=== PATIENT | male | born 1950 | race African-American/Black ===

== ENCOUNTER 2019-05-07 20:33 | Inpatient (IN) ==
--- NOTE | 2019-05-07 20:46 | Emergency Department Note ---
Disposition Clinical Impression: SIRS (systemic inflammatory response syndrome) Disposition: Admitted As Inpatient Condition: Fair Time of Disposition: 00:20 General Adult HPI - General Stated complaint: weakness Time Seen by Provider: 05/07/19 20:36 - Related Data Home Medications Medication Instructions Recorded Confirmed Acetaminophen 325 mg PO Q6HR PRN 05/16/15 06/29/15 Aspirin 81 mg PO DAILY 05/16/15 06/29/15 Benztropine Mesylate 1 mg PO BID 05/16/15 06/29/15 CloZAPine 250 mg PO HS 05/16/15 06/29/15 Diltiazem 120 mg PO DAILY 05/16/15 06/29/15 Docusate 100 mg PO BID 05/16/15 06/29/15 Haloperidol 10 mg PO TID 05/16/15 06/29/15 Hydrochlorothiazide 25 mg PO DAILY 05/16/15 06/29/15 Insulin Aspart 13 unit SQ TID 05/16/15 06/29/15 Insulin Glargine,Hum.rec.anlog 55 unit SQ DAILY 05/16/15 06/29/15 Lamotrigine 100 mg PO HS 05/16/15 06/29/15 Lisinopril 20 mg PO DAILY 05/16/15 06/29/15 [place] Carbonate 300 mg PO HS 05/16/15 06/29/15 Milk of Magnesia 30 ml PO BID 05/16/15 06/29/15 Ranitidine HCl 150 mg PO BID 05/16/15 06/29/15 Sennosides [Senna] 8.6 mg PO DAILY 06/29/15 06/29/15 Previous Rx's Medication Instructions Recorded Sennosides [Senna] 8.6 mg PO BID #60 tablet 05/18/15 Tamsulosin HCl [Flomax] 0.4 mg PO DAILY #30 cap.er.24h 05/18/15 Allergies Allergy/AdvReac Type Severity Reaction Status Date / Time Penicillins Allergy See Verified 05/14/15 20:14 Comments Past Medical History - Past Medical History Medical history: Reports: CHF, COPD, coronary artery disease, diabetes, GERD, liver disease, renal disease, other Surgical history: Reports: pacemaker/AICD, other Psychiatric history: Reports: schizophrenia - Social History Smoking Status: Current every day smoker Smokeless Tobacco Status: No Alcohol use: Reports: occasionally Drug use: Reports: unknown Course Vital Signs Temperature 100.8 F H 05/07/19 20:50 Pulse Rate 106 05/07/19 20:50 Respiratory Rate 16 05/07/19 20:50 Blood Pressure 160/76 05/07/19 20:50 O2 Sat by Pulse Oximetry 97 05/07/19 20:50 Temperature 100.8 F H 05/07/19 20:50 Pulse Rate 106 05/07/19 20:50 Respiratory Rate 16 05/07/19 20:50 Blood Pressure 160/76 05/07/19 20:50 O2 Sat by Pulse Oximetry 97 05/07/19 20:50 Oxygen Delivery Oxygen Delivery Room Air Medical Decision Making - Lab Data Result diagrams: 05/07/19 21:03 05/07/19 21:03 Lab Results 05/07/19 05/07/19 05/07/19 Range/Units 21:03 21:03 21:03 WBC 26.2 H (4.3-11.1) K/mcL RBC 4.33 (4.19-5.50) M/mcL Hgb 11.5 L (12.9-16.9) g/dL Hct 36.6 L (37.5-50.1) % MCV 84.5 (83.0-100.0) fL MCH 26.6 L (28.0-33.3) pg MCHC 31.4 L (31.6-35.5) g/dL RDW 17.2 H (11.5-14.5) % Plt Count 162 (140-400) K/mcL MPV 10.7 (9.4-12.4) fL Immature Gran % 1.0 (0-4) % Seg Neutrophils % 83.9 % Lymphocytes % 9.4 % Monocytes % 5.3 % Eosinophils % 0.1 % Basophils % 0.3 % Neutrophils # 22.0 H (1.6-8.9) K/mcL Lymphocytes # 2.5 (0.6-4.6) K/mcL Monocytes # 1.4 H (0.0-1.3) K/mcL Eosinophils # 0.0 (0.0-0.6) K/mcL Basophils # 0.1 (0.0-0.2) K/mcL Reactive Lymphocytes Present A (Not Present) PT 13.0 H (9.4-12.1) Seconds INR 1.1 Sodium 134 L (136-145) mEq/L Potassium 4.1 (3.5-5.1) mEq/L Chloride 104 (98-107) mEq/L Carbon Dioxide 25 (23-29) mEq/L BUN 23 (8-23) mg/dL Creatinine 2.04 H (0.70-1.30) mg/dL Est GFR ( Amer) 39 L (> 60) Est GFR (Non-Af Amer) 33 L (> 60) BUN/Creatinine Ratio 11 (6-26) Glucose 115 H (70-105) mg/dL Calculated Osmolality 283 (280-300) Lactic Acid (0.5-2.2) mmol/L Calcium 9.6 (8.6-10.3) mg/dL Magnesium 2.0 (1.6-2.6) mg/dL Total Bilirubin 0.4 (0.3-1.0) mg/dL AST 18 (13-39) Units/L ALT 14 (7-52) Units/L Alkaline Phosphatase 129 H (34-104) Units/L Ammonia (16-53) mcmol/L Troponin I 0.04 H* (< 0.04) ng/mL Serum Total Protein 7.2 (6.4-8.9) g/dL Albumin 3.3 L (3.5-5.7) g/dL Globulin 3.9 H (2.4-3.5) g/dL Albumin/Globulin Ratio 0.8 L (1.1-2.2) Urine Color (Yellow) Urine Clarity (Clear) Urine pH (5.0-8.0) pH Units Ur Specific [place] (1.010-1.025) Urine Protein (Neg-Trace) mg/dL Urine Glucose (UA) (Normal) mg/dL Urine Ketones (Negative) mg/dL Urine Blood (Negative) Urine Nitrite (Negative) Urine Bilirubin (Negative) Urine Urobilinogen (Normal) mg/dL Ur Leukocyte Esterase (Negative) Urine Microscopic RBC (0-3) per hpf Urine Microscopic WBC (0-3) per hpf Ur Squamous Epith Cells (None-Few) per lpf Urine Bacteria (None-Few) per hpf Hyaline Casts (None-Few) per lpf [place] (0.6-1.2) mEq/L 05/07/19 05/07/19 05/07/19 Range/Units 21:03 21:03 21:12 WBC (4.3-11.1) K/mcL RBC (4.19-5.50) M/mcL Hgb (12.9-16.9) g/dL Hct (37.5-50.1) % MCV (83.0-100.0) fL MCH (28.0-33.3) pg MCHC (31.6-35.5) g/dL RDW (11.5-14.5) % Plt Count (140-400) K/mcL MPV (9.4-12.4) fL Immature Gran % (0-4) % Seg Neutrophils % % Lymphocytes % % Monocytes % % Eosinophils % % Basophils % % Neutrophils # (1.6-8.9) K/mcL Lymphocytes # (0.6-4.6) K/mcL Monocytes # (0.0-1.3) K/mcL Eosinophils # (0.0-0.6) K/mcL Basophils # (0.0-0.2) K/mcL Reactive Lymphocytes (Not Present) PT (9.4-12.1) Seconds INR Sodium (136-145) mEq/L Potassium (3.5-5.1) mEq/L Chloride (98-107) mEq/L Carbon Dioxide (23-29) mEq/L BUN (8-23) mg/dL Creatinine (0.70-1.30) mg/dL Est GFR ( Amer) (> 60) Est GFR (Non-Af Amer) (> 60) BUN/Creatinine Ratio (6-26) Glucose (70-105) mg/dL Calculated Osmolality (280-300) Lactic Acid 1.0 (0.5-2.2) mmol/L Calcium (8.6-10.3) mg/dL Magnesium (1.6-2.6) mg/dL Total Bilirubin (0.3-1.0) mg/dL AST (13-39) Units/L ALT (7-52) Units/L Alkaline Phosphatase (34-104) Units/L Ammonia (16-53) mcmol/L Troponin I (< 0.04) ng/mL Serum Total Protein (6.4-8.9) g/dL Albumin (3.5-5.7) g/dL Globulin (2.4-3.5) g/dL Albumin/Globulin Ratio (1.1-2.2) Urine Color Yellow (Yellow) Urine Clarity Clear (Clear) Urine pH 6.0 (5.0-8.0) pH Units Ur Specific [place] 1.017 (1.010-1.025) Urine Protein >=300 H (Neg-Trace) mg/dL Urine Glucose (UA) Normal (Normal) mg/dL Urine Ketones Negative (Negative) mg/dL Urine Blood Moderate H (Negative) Urine Nitrite Negative (Negative) Urine Bilirubin Negative (Negative) Urine Urobilinogen Normal (Normal) mg/dL Ur Leukocyte Esterase Negative (Negative) Urine Microscopic RBC 15-30 H (0-3) per hpf Urine Microscopic WBC 3-5 H (0-3) per hpf Ur Squamous Epith Cells Many H (None-Few) per lpf Urine Bacteria None Seen (None-Few) per hpf Hyaline Casts None Seen (None-Few) per lpf [place] 0.5 L (0.6-1.2) mEq/L 05/07/19 Range/Units 21:49 WBC (4.3-11.1) K/mcL RBC (4.19-5.50) M/mcL Hgb (12.9-16.9) g/dL Hct (37.5-50.1) % MCV (83.0-100.0) fL MCH (28.0-33.3) pg MCHC (31.6-35.5) g/dL RDW (11.5-14.5) % Plt Count (140-400) K/mcL MPV (9.4-12.4) fL Immature Gran % (0-4) % Seg Neutrophils % % Lymphocytes % % Monocytes % % Eosinophils % % Basophils % % Neutrophils # (1.6-8.9) K/mcL Lymphocytes # (0.6-4.6) K/mcL Monocytes # (0.0-1.3) K/mcL Eosinophils # (0.0-0.6) K/mcL Basophils # (0.0-0.2) K/mcL Reactive Lymphocytes (Not Present) PT (9.4-12.1) Seconds INR Sodium (136-145) mEq/L Potassium (3.5-5.1) mEq/L Chloride (98-107) mEq/L Carbon Dioxide (23-29) mEq/L BUN (8-23) mg/dL Creatinine (0.70-1.30) mg/dL Est GFR ( Amer) (> 60) Est GFR (Non-Af Amer) (> 60) BUN/Creatinine Ratio (6-26) Glucose (70-105) mg/dL Calculated Osmolality (280-300) Lactic Acid (0.5-2.2) mmol/L Calcium (8.6-10.3) mg/dL Magnesium (1.6-2.6) mg/dL Total Bilirubin (0.3-1.0) mg/dL AST (13-39) Units/L ALT (7-52) Units/L Alkaline Phosphatase (34-104) Units/L Ammonia 45 (16-53) mcmol/L Troponin I (< 0.04) ng/mL Serum Total Protein (6.4-8.9) g/dL Albumin (3.5-5.7) g/dL Globulin (2.4-3.5) g/dL Albumin/Globulin Ratio (1.1-2.2) Urine Color (Yellow) Urine Clarity (Clear) Urine pH (5.0-8.0) pH Units Ur Specific [place] (1.010-1.025) Urine Protein (Neg-Trace) mg/dL Urine Glucose (UA) (Normal) mg/dL Urine Ketones (Negative) mg/dL Urine Blood (Negative) Urine Nitrite (Negative) Urine Bilirubin (Negative) Urine Urobilinogen (Normal) mg/dL Ur Leukocyte Esterase (Negative) Urine Microscopic RBC (0-3) per hpf Urine Microscopic WBC (0-3) per hpf Ur Squamous Epith Cells (None-Few) per lpf Urine Bacteria (None-Few) per hpf Hyaline Casts (None-Few) per lpf [place] (0.6-1.2) mEq/L Attestation Statement - Attestation Attestation: I reviewed the residents documentation and agree with the residents assessment and plan of care. I have personally had face to face time with the patient. (Brief History, Brief Exam, and MDM) I personally supervised and was present for the michelle/critical portions of the following procedures completed by the resid ent: (add procedures performed here). [id number] time provided Patient [place] [facility] with generalized weakness. The patient's actual complaint is bilateral lower extremity swelling. It appears he has a history of psychiatric disease. The patient appears in no acute distress upon arrival. Baseline home medication list reviewed by me. I attest to supervising the resident physician's interpretation of the ECG
--- NOTE | 2019-05-07 20:48 | Emergency Department Note ---
Disposition Clinical Impression: SIRS (systemic inflammatory response syndrome) Disposition: Admitted As Inpatient Condition: Fair Time of Disposition: 22:43 General Adult HPI - General Stated complaint: weakness Time Seen by Provider: 05/07/19 20:36 Source: patient, EMS Mode of arrival: EMS Limitations: no limitations Nursing Notes Reviewed: Yes Vital Signs Reviewed: Yes - History of Present Illness HPI Narrative: 68M with Pmhx of CHF, COPD, T2DM, HTN, HepC, that reports swollen feet and weakness since this morning. [facility], but he states that this is baseline for him. A chart review of the material sent from the [place] reveals that the reason they transferred him here is they believed he needed a higher level of care to determine the etiology of his weakness. Patient's only complaint is that his feet are swollen. He does not complain of any weakness during my exam. He can be understood, although with some difficulty. - Related Data Home Medications Medication Instructions Recorded Confirmed Acetaminophen 325 mg PO Q6HR PRN 05/16/15 06/29/15 Aspirin 81 mg PO DAILY 05/16/15 06/29/15 Benztropine Mesylate 1 mg PO BID 05/16/15 06/29/15 CloZAPine 250 mg PO HS 05/16/15 06/29/15 Diltiazem 120 mg PO DAILY 05/16/15 06/29/15 Docusate 100 mg PO BID 05/16/15 06/29/15 Haloperidol 10 mg PO TID 05/16/15 06/29/15 Hydrochlorothiazide 25 mg PO DAILY 05/16/15 06/29/15 Insulin Aspart 13 unit SQ TID 05/16/15 06/29/15 Insulin Glargine,Hum.rec.anlog 55 unit SQ DAILY 05/16/15 06/29/15 Lamotrigine 100 mg PO HS 05/16/15 06/29/15 Lisinopril 20 mg PO DAILY 05/16/15 06/29/15 [place] Carbonate 300 mg PO HS 05/16/15 06/29/15 Milk of Magnesia 30 ml PO BID 05/16/15 06/29/15 Ranitidine HCl 150 mg PO BID 05/16/15 06/29/15 Sennosides [Senna] 8.6 mg PO DAILY 06/29/15 06/29/15 Previous Rx's Medication Instructions Recorded Sennosides [Senna] 8.6 mg PO BID #60 tablet 05/18/15 Tamsulosin HCl [Flomax] 0.4 mg PO DAILY #30 cap.er.24h 05/18/15 Allergies Allergy/AdvReac Type Severity Reaction Status Date / Time Penicillins Allergy See Verified 05/14/15 20:14 Comments Review of Systems: In addition to that documented in the HPI above, the additional ROS was obtained: Constitutional: Denies fevers Reports chills Eyes: Denies vision changes ENMT: Denies sore throat CV: Denies chest pain Resp: Reports nine months of SOB GI: Denies vomiting or diarrhea : Denies painful urination MSK: Denies recent trauma Skin: Denies new rashes Neuro: Reports baseline numbness, tingling of feet and new onset weakness this morning Endocrine: Denies unexpected weight loss Heme: Denies bleeding disorders Past Medical History - Past Medical History Attestation: Yes The following information was validated with the patient. Medical history: Reports: CHF, COPD, coronary artery disease, diabetes, GERD, liver disease, renal disease, other Surgical history: Reports: pacemaker/AICD, other Psychiatric history: Reports: schizophrenia - Social History Smoking Status: Current every day smoker Smokeless Tobacco Status: No Alcohol use: Reports: occasionally Drug use: Reports: unknown Physical Exam General: A&O x 3 - person, place, month. No acute distress. Well developed, well nourished. Somewhat difficult to understand, but can be understood with difficulty. Head: atraumatic, normocephalic. ENT: No conjunctival injection, no scleral icterus. PERRLA. EOMI. Oropharynx non- erythematous. mucous membranes moist. Neuro: No focal deficits, no speech deficit, no facial droop, mentating well. BUE/BLE Str 5/5. Artem[place] UE/LE sensation intact. CN II-XII intact. Cerebellar testing with [id number] intact, pt is ataxic bilaterally with finger to nose. He has a baseline resting tremor that he reports is not new. Pulm: Lungs CTAB A/P. No wheezes, rales, ronchi. Cardio: RRR no m/r/g. Chest not tender to palpation. Abd: Soft, non-distended. Normoactive bowel sounds. Non-tender to palpation. No guarding. Non rigid. Extremities: Radial pulses 2+ artemio, dorsalis pedis/posterior tibialis 2+ artemio. Mild, non-pitting LE edema, R>L. No cyanosis, clubbing. Skin: warm, dry, intact. No rashes. Psych: Appropriate mood and affect. Answers questions appropriately. Somewhat argumentative. Course Vital Signs Temperature 100.8 F H 05/07/19 20:50 Pulse Rate 106 05/07/19 20:50 Respiratory Rate 16 05/07/19 20:50 Blood Pressure 160/76 05/07/19 20:50 O2 Sat by Pulse Oximetry 97 05/07/19 20:50 Temperature 100.8 F H 05/07/19 20:50 Pulse Rate 106 05/07/19 20:50 Respiratory Rate 16 05/07/19 20:50 Blood Pressure 160/76 05/07/19 20:50 O2 Sat by Pulse Oximetry 97 05/07/19 20:50 Oxygen Delivery Oxygen Delivery Room Air Medical Decision Making - MDM Narrative Medical decision making narrative: 68-year-old male with significant past medical history that reports for weakness that began this morning as well as some worsening shortness of breath. We will obtain infection rule out workup to include chest x-ray, CBC, BMP, lactic acid, blood cultures. Disposition pending. Pt had leukocytosis with fever and with complaints of increased SOB, suspect SIRS with a lung source. Spoke with the hospitalist, Dr. Le, who requested CT of Chest, Abd, and Pelvis. Will order. Pt received 1g of rocephin while in the department as well as 1L of NaCl. Pt was admitted to Dr. Le who agreed to accept the patient to his service. Results of the workup including any imaging and/or labwork was shared with the patient at bedside. Patient was given an opportunity to ask questions at bedside and all of their concerns were addressed. Patient verbalized understanding and agreement with plan of care. Pt remained stable while in the department. - Medical Records Medical records reviewed: Yes I reviewed the patient's medical records. - Lab Data Lab results reviewed: Yes I reviewed the patient's lab results. Result diagrams: 05/07/19 21:03 05/07/19 21:03 Lab Results 05/07/19 05/07/19 05/07/19 Range/Units 21:03 21:03 21:03 WBC 26.2 H (4.3-11.1) K/mcL RBC 4.33 (4.19-5.50) M/mcL Hgb 11.5 L (12.9-16.9) g/dL Hct 36.6 L (37.5-50.1) % MCV 84.5 (83.0-100.0) fL MCH 26.6 L (28.0-33.3) pg MCHC 31.4 L (31.6-35.5) g/dL RDW 17.2 H (11.5-14.5) % Plt Count 162 (140-400) K/mcL MPV 10.7 (9.4-12.4) fL Immature Gran % 1.0 (0-4) % Seg Neutrophils % 83.9 % Lymphocytes % 9.4 % Monocytes % 5.3 % Eosinophils % 0.1 % Basophils % 0.3 % Neutrophils # 22.0 H (1.6-8.9) K/mcL Lymphocytes # 2.5 (0.6-4.6) K/mcL Monocytes # 1.4 H (0.0-1.3) K/mcL Eosinophils # 0.0 (0.0-0.6) K/mcL Basophils # 0.1 (0.0-0.2) K/mcL Reactive Lymphocytes Present A (Not Present) PT 13.0 H (9.4-12.1) Seconds INR 1.1 Sodium 134 L (136-145) mEq/L Potassium 4.1 (3.5-5.1) mEq/L Chloride 104 (98-107) mEq/L Carbon Dioxide 25 (23-29) mEq/L BUN 23 (8-23) mg/dL Creatinine 2.04 H (0.70-1.30) mg/dL Est GFR ( Amer) 39 L (> 60) Est GFR (Non-Af Amer) 33 L (> 60) BUN/Creatinine Ratio 11 (6-26) Glucose 115 H (70-105) mg/dL Calculated Osmolality 283 (280-300) Lactic Acid (0.5-2.2) mmol/L Calcium 9.6 (8.6-10.3) mg/dL Magnesium 2.0 (1.6-2.6) mg/dL Total Bilirubin 0.4 (0.3-1.0) mg/dL AST 18 (13-39) Units/L ALT 14 (7-52) Units/L Alkaline Phosphatase 129 H (34-104) Units/L Ammonia (16-53) mcmol/L Troponin I 0.04 H* (< 0.04) ng/mL Serum Total Protein 7.2 (6.4-8.9) g/dL Albumin 3.3 L (3.5-5.7) g/dL Globulin 3.9 H (2.4-3.5) g/dL Albumin/Globulin Ratio 0.8 L (1.1-2.2) Urine Color (Yellow) Urine Clarity (Clear) Urine pH (5.0-8.0) pH Units Ur Specific [place] (1.010-1.025) Urine Protein (Neg-Trace) mg/dL Urine Glucose (UA) (Normal) mg/dL Urine Ketones (Negative) mg/dL Urine Blood (Negative) Urine Nitrite (Negative) Urine Bilirubin (Negative) Urine Urobilinogen (Normal) mg/dL Ur Leukocyte Esterase (Negative) Urine Microscopic RBC (0-3) per hpf Urine Microscopic WBC (0-3) per hpf Ur Squamous Epith Cells (None-Few) per lpf Urine Bacteria (None-Few) per hpf Hyaline Casts (None-Few) per lpf [place] (0.6-1.2) mEq/L 05/07/19 05/07/19 05/07/19 Range/Units 21:03 21:03 21:12 WBC (4.3-11.1) K/mcL RBC (4.19-5.50) M/mcL Hgb (12.9-16.9) g/dL Hct (37.5-50.1) % MCV (83.0-100.0) fL MCH (28.0-33.3) pg MCHC (31.6-35.5) g/dL RDW (11.5-14.5) % Plt Count (140-400) K/mcL MPV (9.4-12.4) fL Immature Gran % (0-4) % Seg Neutrophils % % Lymphocytes % % Monocytes % % Eosinophils % % Basophils % % Neutrophils # (1.6-8.9) K/mcL Lymphocytes # (0.6-4.6) K/mcL Monocytes # (0.0-1.3) K/mcL Eosinophils # (0.0-0.6) K/mcL Basophils # (0.0-0.2) K/mcL Reactive Lymphocytes (Not Present) PT (9.4-12.1) Seconds INR Sodium (136-145) mEq/L Potassium (3.5-5.1) mEq/L Chloride (98-107) mEq/L Carbon Dioxide (23-29) mEq/L BUN (8-23) mg/dL Creatinine (0.70-1.30) mg/dL Est GFR ( Amer) (> 60) Est GFR (Non-Af Amer) (> 60) BUN/Creatinine Ratio (6-26) Glucose (70-105) mg/dL Calculated Osmolality (280-300) Lactic Acid 1.0 (0.5-2.2) mmol/L Calcium (8.6-10.3) mg/dL Magnesium (1.6-2.6) mg/dL Total Bilirubin (0.3-1.0) mg/dL AST (13-39) Units/L ALT (7-52) Units/L Alkaline Phosphatase (34-104) Units/L Ammonia (16-53) mcmol/L Troponin I (< 0.04) ng/mL Serum Total Protein (6.4-8.9) g/dL Albumin (3.5-5.7) g/dL Globulin (2.4-3.5) g/dL Albumin/Globulin Ratio (1.1-2.2) Urine Color Yellow (Yellow) Urine Clarity Clear (Clear) Urine pH 6.0 (5.0-8.0) pH Units Ur Specific [place] 1.017 (1.010-1.025) Urine Protein >=300 H (Neg-Trace) mg/dL Urine Glucose (UA) Normal (Normal) mg/dL Urine Ketones Negative (Negative) mg/dL Urine Blood Moderate H (Negative) Urine Nitrite Negative (Negative) Urine Bilirubin Negative (Negative) Urine Urobilinogen Normal (Normal) mg/dL Ur Leukocyte Esterase Negative (Negative) Urine Microscopic RBC 15-30 H (0-3) per hpf Urine Microscopic WBC 3-5 H (0-3) per hpf Ur Squamous Epith Cells Many H (None-Few) per lpf Urine Bacteria None Seen (None-Few) per hpf Hyaline Casts None Seen (None-Few) per lpf [place] 0.5 L (0.6-1.2) mEq/L 05/07/19 Range/Units 21:49 WBC (4.3-11.1) K/mcL RBC (4.19-5.50) M/mcL Hgb (12.9-16.9) g/dL Hct (37.5-50.1) % MCV (83.0-100.0) fL MCH (28.0-33.3) pg MCHC (31.6-35.5) g/dL RDW (11.5-14.5) % Plt Count (140-400) K/mcL MPV (9.4-12.4) fL Immature Gran % (0-4) % Seg Neutrophils % % Lymphocytes % % Monocytes % % Eosinophils % % Basophils % % Neutrophils # (1.6-8.9) K/mcL Lymphocytes # (0.6-4.6) K/mcL Monocytes # (0.0-1.3) K/mcL Eosinophils # (0.0-0.6) K/mcL Basophils # (0.0-0.2) K/mcL Reactive Lymphocytes (Not Present) PT (9.4-12.1) Seconds INR Sodium (136-145) mEq/L Potassium (3.5-5.1) mEq/L Chloride (98-107) mEq/L Carbon Dioxide (23-29) mEq/L BUN (8-23) mg/dL Creatinine (0.70-1.30) mg/dL Est GFR ( Amer) (> 60) Est GFR (Non-Af Amer) (> 60) BUN/Creatinine Ratio (6-26) Glucose (70-105) mg/dL Calculated Osmolality (280-300) Lactic Acid (0.5-2.2) mmol/L Calcium (8.6-10.3) mg/dL Magnesium (1.6-2.6) mg/dL Total Bilirubin (0.3-1.0) mg/dL AST (13-39) Units/L ALT (7-52) Units/L Alkaline Phosphatase (34-104) Units/L Ammonia 45 (16-53) mcmol/L Troponin I (< 0.04) ng/mL Serum Total Protein (6.4-8.9) g/dL Albumin (3.5-5.7) g/dL Globulin (2.4-3.5) g/dL Albumin/Globulin Ratio (1.1-2.2) Urine Color (Yellow) Urine Clarity (Clear) Urine pH (5.0-8.0) pH Units Ur Specific [place] (1.010-1.025) Urine Protein (Neg-Trace) mg/dL Urine Glucose (UA) (Normal) mg/dL Urine Ketones (Negative) mg/dL Urine Blood (Negative) Urine Nitrite (Negative) Urine Bilirubin (Negative) Urine Urobilinogen (Normal) mg/dL Ur Leukocyte Esterase (Negative) Urine Microscopic RBC (0-3) per hpf Urine Microscopic WBC (0-3) per hpf Ur Squamous Epith Cells (None-Few) per lpf Urine Bacteria (None-Few) per hpf Hyaline Casts (None-Few) per lpf [place] (0.6-1.2) mEq/L - Radiology Data Radiology results reviewed: Yes I reviewed the patient's radiology results. Chest X-Ray 05/07/19 20:44 IMPRESSION: Cardiomegaly with clear lungs. D/ / Jesus Thurston MD / Jesus Thurston MD Interpreting Provider: Jesus Thurston MD - EKG Data EKG #1 EKG attestation: Yes I reviewed and interpreted this EKG. EKG results narrative: Heart rate 108, rhythm sinus tachycardia, axis left at -70. RBBB noted. No ST elevation or depression that meets Sgarbossa's criteria for STEMI. [place] 162, QRS 156 and prolonged, Qtc 510 and prolonged. Intervals abnormal as would be expected with RBBB. When compared to previous study dated 06/30/2015, pt had a RBBB on previous study as well.
[2019-05-07 21:19] LABS: Basophils % 0.3 %; Eosinophils % 0.1 %; Hemoglobin 11.5 g/dL (12.9-16.9); Red Cell Distribution Width 17.2 % (11.5-14.5)
[2019-05-07 21:20] LABS: Basophils # 0.1 K/mcL (0.0-0.2); Hematocrit 36.6 % (37.5-50.1); Lymphocytes # 2.5 K/mcL (0.6-4.6); Lymphocytes % 9.4 %; Mean Corpuscular HGB Conc 31.4 g/dL (31.6-35.5); Mean Corpuscular Hemoglobin 26.6 pg (28.0-33.3); Mean Corpuscular Volume 84.5 fL (83.0-100.0); Mean Platelet Volume 10.7 fL (9.4-12.4); Monocytes # 1.4 K/mcL (0.0-1.3); Monocytes % 5.3 %; Platelet Count 162 K/mcL (140-400); Red Blood Count 4.33 M/mcL (4.19-5.50); Segmented Neutrophils % 83.9 %; White Blood Count 26.2 K/mcL (4.3-11.1)
[2019-05-07 21:23] LABS: Bilirubin,Urine Negative (Negative); Blood,Urine Moderate (Negative); Clarity,Urine Clear (Clear); Color,Urine Yellow (Yellow); Glucose,Urine (UA) Normal (Normal); Ketones,Urine Negative (Negative); Leukocyte Esterase,Urine Negative (Negative); Nitrite,Urine Negative (Negative); Protein,Urine >=300 mg/dL (Neg-Trace); Specific Gravity,Urine 1.017 (1.010-1.025); Urobilinogen,Urine Normal (Normal)
[2019-05-07 21:25] LABS: Bacteria,Urine None Seen per hpf (None-Few); Hyaline Casts,Urine None Seen per lpf (None-Few); RBC,Urine 15-30 per hpf (0-3); Squamous Epithelial Cell,Urine Many per lpf (None-Few)
[2019-05-07 21:29] LABS: INR 1.1
[2019-05-07 21:41] LABS: Albumin 3.3 g/dL (3.5-5.7); Albumin/Globulin Ratio 0.8 (1.1-2.2); Bilirubin,Total 0.4 mg/dL (0.3-1.0); Calcium 9.6 mg/dL (8.6-10.3); Globulin 3.9 g/dL (2.4-3.5); Potassium 4.1 mEq/L (3.5-5.1); Total Protein 7.2 g/dL (6.4-8.9)
[2019-05-07 21:42] LABS: Reactive Lymphocytes Present (Not Present)
[2019-05-07 21:44] LABS: Troponin I 0.04 ng/mL (< 0.04)
[2019-05-07] MEDS ORDERED: cefTRIAXone 1,000 MG in 0.9 % Sodium Chloride Mini Bag 100 ML IVPB ONE (21:49)
[2019-05-07] MEDS ORDERED: 0.9 % Sodium Chloride 1,000 ML IVC ONE (22:39)
[2019-05-07] MEDS ORDERED: Acetaminophen 325 MG TABLET PO ONE (22:57)
--- NOTE | 2019-05-08 02:49 | Internal Med History&Physical ---
<ArchanasagrarioPierce srivastava Venkatesh - Last Filed: 05/08/19 07:37> Date of Encounter: 05/08/19 Internal Medicine - H&P: HPI History of present illness: Mr. Carroll is a 68 year old male Internal Medicine - H&P: Meds Acetaminophen 325 mg PO Q12HR PRN 05/16/15 [History] Aspirin 81 mg PO DAILY 05/16/15 [History] Benztropine Mesylate 0.5 mg PO BID 05/16/15 [History] Diltiazem 120 mg PO DAILY 05/16/15 [History] Docusate 100 mg PO BID 05/16/15 [History] Haloperidol 5 mg PO BID 05/16/15 [History] Hydrochlorothiazide 25 mg PO DAILY 05/16/15 [History] Insulin Aspart 13 unit SQ TID 05/16/15 [History] Insulin Glargine,Hum.rec.anlog 42 unit SQ DAILY 05/16/15 [History] Lamotrigine 100 mg PO HS 05/16/15 [History] Lisinopril 20 mg PO DAILY 05/16/15 [History] [place] Carbonate 300 mg PO HS 05/16/15 [History] Milk of Magnesia 30 ml PO BID 05/16/15 [History] Ranitidine HCl 150 mg PO BID 05/16/15 [History] Sennosides [Senna] 8.6 mg PO BID #60 tablet 05/18/15 [Rx] Tamsulosin HCl [Flomax] 0.4 mg PO DAILY #30 cap.er.24h 05/18/15 [Rx] Sennosides [Senna] 8.6 mg PO DAILY 06/29/15 [History] Albuterol Sulfate [Proair Respiclick] 2 puff IH Q6HR PRN 05/08/19 [History] Amlodipine Besylate 10 mg PO DAILY 05/08/19 [History] Bisacodyl [Woman's Laxative] 10 mg PO DAILY PRN 05/08/19 [History] Budesonide/Formoterol 160/4.5 2 puff BID 05/08/19 [History] Cholecalciferol (D-3) [Vitamin D] 2,000 unit PO DAILY 05/08/19 [History] CloZAPine [Fazaclo] 250 mg PO HS 05/08/19 [History] GlipiZIDE [Glucotrol] 5 mg PO BID 05/08/19 [History] Haloperidol 10 mg PO HS 05/08/19 [History] Omeprazole [PriLOSEC] 20 mg PO BID 05/08/19 [History] Allergy/AdvReac Type Severity Reaction Status Date / Time Penicillins Allergy See Verified 05/14/15 20:14 Comments chocolate Allergy Unknown See Uncoded 05/08/19 01:51 Comments All Systems PM: A 10-system review of systems was performed and is negative for pertinent findings except as documented above in the HPI. - Constitutional Vitals: Temp Pulse Resp BP Pulse Ox 100.6 F H 96 24 144/73 95 05/08/19 06:02 05/08/19 06:02 05/08/19 06:02 05/08/19 06:02 05/08/19 06:02 Internal Med - H&P Results - Labs CBC & Chem 7: 05/08/19 04:12 05/08/19 04:12 Labs: Short CBC 05/07/19 05/08/19 Range/Units 21:03 04:12 WBC 26.2 H 24.1 H (4.3-11.1) K/mcL Hgb 11.5 L 10.8 L (12.9-16.9) g/dL Hct 36.6 L 34.6 L (37.5-50.1) % Plt Count 162 172 (140-400) K/mcL Neutrophils # 22.0 H 19.3 H (1.6-8.9) K/mcL BMP 05/07/19 05/08/19 21:03 04:12 Sodium 134 L 136 Potassium 4.1 4.0 Chloride 104 107 Carbon Dioxide 25 23 BUN 23 22 Creatinine 2.04 H 1.89 H Glucose 115 H 62 L Calcium 9.6 9.1 Cardiac Enzymes 05/07/19 Range/Units 21:03 Troponin I 0.04 H* (< 0.04) ng/mL Liver Function 05/07/19 05/08/19 Range/Units 21:03 04:12 Total Bilirubin 0.4 0.4 (0.3-1.0) mg/dL AST 18 18 (13-39) Units/L ALT 14 13 (7-52) Units/L Alkaline Phosphatase 129 H 116 H (34-104) Units/L Albumin 3.3 L 2.9 L (3.5-5.7) g/dL Urine 05/07/19 Range/Units 21:12 Urine Color Yellow (Yellow) Urine Clarity Clear (Clear) Urine pH 6.0 (5.0-8.0) pH Units Ur Specific [place] 1.017 (1.010-1.025) Urine Protein >=300 H (Neg-Trace) mg/dL Urine Glucose (UA) Normal (Normal) mg/dL - Impressions ITS Impressions Chest X-Ray 05/07/19 20:44 IMPRESSION: Cardiomegaly with clear lungs. D/ / Jesus Thurston MD / Jesus Thurston MD Interpreting Provider: Jesus Thurston MD Chest CT 05/07/19 22:39 IMPRESSION: No acute abnormality identified. Marked thyromegaly again seen. Thyroid ultrasound could be obtained for further evaluation if clinically warranted. D/ / Jesus Thurston MD / Jesus Thurston MD Interpreting Provider: Jesus Thurston MD Abdomen/Pelvis CT 05/08/19 22:39 IMPRESSION: 1. Cholelithiasis without scan evidence for acute cholecystitis. 2. Small ventral hernias again seen containing small bowel without small bowel obstruction. 3. Large amount of stool again seen in the colon. D/ / Jesus Thurston MD / Jesus Thurston MD Interpreting Provider: Jesus Thurston MD - Time Spent With Patient Total time spent is greater than 50% in coordination of care (as documented) at patient's floor/unit and/or counseling patient: - Attending Attestation I performed a history and physical examination of the patient and discussed his management with the resident. I reviewed the resident's note and agree with the documented plan of care. Patient is a 68M with a past medical history of CHF, COPD, T2DM, HTN, HepC, who was transferred [facility] due to weakness and concern that patient requires a higher level of care to determine the etiology of his weakness. Patient's only complaint is that his feet are swollen. Patient was found to have a significant leukocytosis, elevated creatinine which appears to be near baseline and mildly elevated troponin of 0.04. Further workup including CT of the chest abdomen and pelvis revealed no clear source of infection. Physical examination was also unremarkable. No evidence of meningeal signs. Lungs clear to auscultation. No significant lower extremity edema noted. Patient was given a one-time dose of ceftriaxone in the ED for possible UTI though UA was unremarkable. Blood cultures were obtained. We will hold off antibiotics at this time given no clear etiology of infection despite meeting SIRS criteria. Continue fluids and follow-up cultures. While nurse was questioning the patient shortly after arrival to the floor, patient did not endorse thoughts of harming himself, specifically jumping off a bridge. A sitter was subsequently obtained and a psychiatric consult placed. Of note, patient is on multiple psychiatric medications including haloperidol and lithium. [place] level was obtained which was found to be low. [place], notably may cause leukocytosis, however this would not explain the patient's fever. Patient otherwise does not show any evidence of dystonia or EPS signs. We will continue to monitor <Kannan Rinaldi - Last Filed: 05/08/19 08:15> Date of Encounter: 05/08/19 Time of Encounter: 01:15 Internal Medicine - H&P: HPI History of present illness: Mr. Carroll is a 68-year-old male with a PMH of CHF, COPD, T2 DM, HTN, and hepatitis C who presented to [facility] as a transfer [facility] the [facility] for swollen feet and weakness. He was transferred here for further workup for his weakness. Only complaint is that his feet are swollen. Does not complain of any weakness. He has slurred speech which is baseline. On arrival, vital signs demonstrated an elevated temperature at 100.8, elevated heart rate at 106, elevated blood pressure 160/76. All other vital signs were within normal limits. Labs showed an elevated white count at 26.2 with left shift, a low sodium of 134, creatinine 2.04 (appears to be baseline per chart review), elevated troponin 0.04, and elevated alkaline phosphatase at 129. CXR showed cardiomegaly. 2 sets of blood cultures were ordered. A one-time dose of Rocephin was ordered, and he was given 1 bolus of normal saline. A CT scan of the chest, abdomen, and pelvis were ordered. EKG demonstrated sinus tachycardia at 108, LAD, RBBB; no changes compared to prior EKG. During interview, patient stated that he had some pain in his legs. He reports that this has been going on for the last 6 months. His lower extremities both appear swollen; nonpitting edema on exam. He has dark discolorations on the lower portion of his lower extremities. When the nurse was questioning the patient before his arrival to the floor, he had reportedly stated that he wanted to specific is physically by jumping off a bridge. A sitter was obtained and a psychiatric consult was placed. Patient does have a known psychiatric history, and is currently on lithium haloperidol. We will continue to monitor patient for signs of deterioration. Closely monitor patient's vital signs, and order pro-calcitonin, ESR, CRP, and TSH. No infection source is suspected at this time. Blood cultures are ordered and currently pending. He has no meningeal signs, no cough, clear lung sounds, no abdominal pain, and no dysuria. Past Med Surg Social Fam HX - Past Medical History Medical history: CHF, COPD, coronary artery disease, diabetes, GERD, liver disease, renal disease, other Additional medical history: heart murmur Psychiatric history: schizophrenia - Past Surgical History Surgical History: pacemaker/AICD, other - Social History Smoking Status: Current every day smoker Packs per day: 2 Smokeless Tobacco Status: No Alcohol use: occasionally Drug use: none All Systems PM: A 10-system review of systems was performed and is negative for pertinent findings except as documented above in the HPI. - Constitutional Vitals: Temp Pulse Resp BP Pulse Ox 100.6 F H 105 32 166/79 95 05/08/19 00:33 05/08/19 00:33 05/08/19 00:33 05/08/19 00:33 05/08/19 00:33 Exam: General: Conversant, slurred speech Head: atraumatic, normocephalic Eye: PERRL, EOMI, conjuntiva pink, sclera anicteric Neck: Supple, trachea midline Respiratory: CTAB. No accessory muscle use, wheezes, rales, or rhonchi Cardiovascular: RRR, +S1, +S2; no murmurs, rubs, gallops Abdomen: Soft, nontender Extremities: Nonpitting edema bilaterally, dark discoloration of both lower extremities; chronic skin changes Psychiatric: Normal affect, normal mood Skin: Dry, intact Internal Med - H&P Results - Labs CBC & Chem 7: 05/08/19 04:12 05/08/19 04:12 Labs: Short CBC 05/07/19 Range/Units 21:03 WBC 26.2 H (4.3-11.1) K/mcL Hgb 11.5 L (12.9-16.9) g/dL Hct 36.6 L (37.5-50.1) % Plt Count 162 (140-400) K/mcL Neutrophils # 22.0 H (1.6-8.9) K/mcL BMP 05/07/19 21:03 Sodium 134 L Potassium 4.1 Chloride 104 Carbon Dioxide 25 BUN 23 Creatinine 2.04 H Glucose 115 H Calcium 9.6 Cardiac Enzymes 05/07/19 Range/Units 21:03 Troponin I 0.04 H* (< 0.04) ng/mL Liver Function 05/07/19 Range/Units 21:03 Total Bilirubin 0.4 (0.3-1.0) mg/dL AST 18 (13-39) Units/L ALT 14 (7-52) Units/L Alkaline Phosphatase 129 H (34-104) Units/L Albumin 3.3 L (3.5-5.7) g/dL Urine 05/07/19 Range/Units 21:12 Urine Color Yellow (Yellow) Urine Clarity Clear (Clear) Urine pH 6.0 (5.0-8.0) pH Units Ur Specific [place] 1.017 (1.010-1.025) Urine Protein >=300 H (Neg-Trace) mg/dL Urine Glucose (UA) Normal (Normal) mg/dL - Impressions ITS Impressions Chest X-Ray 05/07/19 20:44 IMPRESSION: Cardiomegaly with clear lungs. D/ / Jesus Thurston MD / Jesus Thurston MD Interpreting Provider: Jesus Thurston MD Chest CT 05/07/19 22:39 IMPRESSION: No acute abnormality identified. Marked thyromegaly again seen. Thyroid ultrasound could be obtained for further evaluation if clinically warranted. D/ / Jesus Thurston MD / Jesus Thurston MD Interpreting Provider: Jesus Thurston MD Abdomen/Pelvis CT 05/08/19 22:39 IMPRESSION: 1. Cholelithiasis without scan evidence for acute cholecystitis. 2. Small ventral hernias again seen containing small bowel without small bowel obstruction. 3. Large amount of stool again seen in the colon. D/ / Jesus Thurston MD / Jesus Thurston MD Interpreting Provider: Jesus Thurston MD - Assessment and Plan (1) SIRS (systemic inflammatory response syndrome) Current Visit: Yes Status: Acute Assessment and plan: - Patient met 4/4 SIRS criteria on arrival with tachycardia, tachypnea, and leukocytosis - Etiology unknown at this time; no potential infection source identified - He denies cough, subjective fever, or sputum production - Of note, patient is on lithium, which may be contributing to his leukocytosis - He was given a one-time dose of Rocephin in the emergency department - Imaging studies: CXR - cardiomegaly CT chest - marked thyromegaly, no acute abnormalities CT abdomen/pelvis - Cholelithiasis w/o scan evidence for acute cholecystitis; Small ventral hernias, Large amount of stool seen in the colon Plan - Blood cultures x 2 ordered and currently pending - Pro-calcitonin pending - ESR, CRP, TSH - Is no infection source is suspected at this time, we will hold off on antibiotics for the time being. He is currently hemodynamically stable. Patients condition worsens, initiate antibiotic therapy (2) Elevated troponin Current Visit: Yes Status: Acute Assessment and plan: - Troponin noted to be elevated at 0.04 on arrival - Denies active chest pain - We will trend 2 (3) Diabetes Current Visit: No Status: Chronic Assessment and plan: - Sliding scale insulin, diabetic diet ordered Qualifiers: Qualified Code(s): E11.9 - Type 2 diabetes mellitus without complications (4) CHF (congestive heart failure) Current Visit: Yes Status: Acute Assessment and plan: - Patient has a documented history of congestive heart failure - BNP ordered and currently pending - No prior echocardiogram is on file - Will obtain echocardiogram Qualifiers: Qualified Code(s): I50.9 - Heart failure, unspecified (5) Suicidal ideation Current Visit: Yes Status: Acute Assessment and plan: - When patient was brought to the floor, he reportedly told the nurse that he wanted to harm himself, specifically by jumping off a bridge - Sitter was obtained, and psychiatry consult has been placed (6) HTN (hypertension) Current Visit: Yes Status: Acute Qualifiers: Qualified Code(s): I10 - Essential (primary) hypertension (7) COPD (chronic obstructive pulmonary disease) Current Visit: Yes Status: Acute Qualifiers: Qualified Code(s): J44.9 - Chronic obstructive pulmonary disease, unspecified - Time Spent With Patient Total time spent is greater than 50% in coordination of care (as documented) at patient's floor/unit and/or counseling patient:
[2019-05-08] MEDS ORDERED: Naloxone 0.4 MG/ML INJ IVP PRN (03:19)
[2019-05-08] MEDS: 0.9 % Sodium Chloride 1,000 ML IVC SCH ×2 (03:40→14:13)
[2019-05-08] MEDS ORDERED: Dextrose Gel 15 GM/37.5 ML TUBE PO PRN ×2 (03:54)
[2019-05-08] MEDS ORDERED: *HR* Dextrose 50 % in Water (Syg) 50 ML SYRINGE IVP PRN (03:54)
[2019-05-08] MEDS ORDERED: D5% in Water 1,000 ML IVC PRN (03:54)
[2019-05-08 04:33] LABS: Basophils # 0.1 K/mcL (0.0-0.2); Basophils % 0.2 %; Eosinophils # 0.1 K/mcL (0.0-0.6); Eosinophils % 0.3 %; Hematocrit 34.6 % (37.5-50.1); Hemoglobin 10.8 g/dL (12.9-16.9); Lymphocytes # 2.9 K/mcL (0.6-4.6); Lymphocytes % 11.9 %; Mean Corpuscular HGB Conc 31.2 g/dL (31.6-35.5); Mean Corpuscular Hemoglobin 26.4 pg (28.0-33.3); Mean Corpuscular Volume 84.6 fL (83.0-100.0); Mean Platelet Volume 10.8 fL (9.4-12.4); Monocytes # 1.5 K/mcL (0.0-1.3); Monocytes % 6.1 %; Neutrophils # 19.3 K/mcL (1.6-8.9); Platelet Count 172 K/mcL (140-400); Red Blood Count 4.09 M/mcL (4.19-5.50); Segmented Neutrophils % 80.5 %; White Blood Count 24.1 K/mcL (4.3-11.1)
[2019-05-08 04:47] LABS: Albumin 2.9 g/dL (3.5-5.7); Albumin/Globulin Ratio 0.8 (1.1-2.2); Bilirubin,Total 0.4 mg/dL (0.3-1.0); Calcium 9.1 mg/dL (8.6-10.3); Globulin 3.7 g/dL (2.4-3.5); Total Protein 6.6 g/dL (6.4-8.9)
[2019-05-08] MEDS ORDERED: Artificial Tears SOLN 15 ML BOTTLE BOTH EYES PRN (06:27)
[2019-05-08] MEDS: Insulin LISPRO 300 UNITS/3 ML VIAL SQ SCH ×4 (08:09→20:39)
[2019-05-08] MEDS ORDERED: Perflutren Lipid Microsphere 1.3 ML in 0.9 % Sodium Chloride 8.7 ML IVP ONE (08:41)
[2019-05-08] MEDS: Cholecalciferol (D-3) 1,000 UNIT (25MCG) TABLET PO SCH (08:45)
[2019-05-08] MEDS: Sennosides 8.6 MG TABLET PO SCH ×2 (08:45→20:37)
[2019-05-08] MEDS: Artificial Tears SOLN 15 ML BOTTLE BOTH EYES SCH ×5 (08:45→23:04)
[2019-05-08] MEDS: Famotidine 20 MG TABLET PO SCH ×2 (08:45→16:49)
[2019-05-08] MEDS: Aspirin 81 MG TAB.CHEW PO SCH (08:45)
[2019-05-08] MEDS: Chlorhexidine Rinse 15 ML MOUTHWASH MM SCH ×2 (08:46→20:39)
[2019-05-08] MEDS: Budesonide/Formoterol 160/4.5 1 PUFF INH IH SCH ×2 (10:38→22:29)
--- NOTE | 2019-05-08 14:02 | Consult Note ---
Date of Encounter: 05/08/19 Time of Encounter: 13:59 Assessment & Recommendation (1) Schizophrenia Current visit: Yes Status: Acute Assessment & Recommendation: Unfortunately this tech writer could not get a good assessment today as client repeatedly fell asleep and his speech was so thick and mumbled it was difficult to understand. Client did say no when this tech writer questioned his suicidality. However, given his level of sedation and inability to cooperate with an interview, do not think it is best to put a lot of jed in his negative response. Would continue with sitter for time being. Client is reportedly a and lives in a [place] [facility]. For this reason suspect his medications are given to him daily by staff and that he has been compliant with treatment for his mental health. Would continue with home meds as ordered for now. Of note, client seems to have a swollen tongue. There are multiple potential causes for this but antipsychotics can cause tongue/laryngeal swelling. Clozapine is unlikely to do this but Haldol can cause EPS reactions like this. This type of reaction is more often seem when a medication is first started or a dose is increased. However, would keep an EPS reaction to Haldol in the differential if no other known cause. If due to Haldol can treatment with an anticholinergic agent like 2mg of Cogentin or 50mg of Benadryl. Doses can be repeated as needed. If tongue starts to swell rapidly for any reason can give either of these medications IM. Qualifiers: Schizophrenia type: unspecified Qualified Code(s): F20.9 - Schizophrenia, unspecified History of Present Illness Requesting Physician: Bulmaro Gilbert Reason for consult: SI History of present illness: Mr. Carroll is a 68 year old male with Schizophrenia who was transferred from the [place] for generalized weakness. Psychiatry was consulted due to reports client expressed a desire to jump off a bridge. Unfortunately, client was unable to be adequately assessed today as he kept falling asleep while trying to answer questions. His speech also sounded very thick and was difficult to understand. His sitter said client's tongue has been swollen since arriving at [place]. CC: Bulmaro Gilbert Past Med Surg Social Fam HX - Past Medical History Medical history: CHF, COPD, coronary artery disease, diabetes, GERD, liver disease, renal disease, other - Past Psychiatric History Psychiatric history: Reports: schizophrenia Family psychiatric history: Unknown Family History of Suicide: Unknown - Past Surgical History Surgical History: pacemaker/AICD, other - Social History Smoking Status: Current every day smoker Smokeless Tobacco Status: No Alcohol use: occasionally Drug use: none Medications & Allergies Acetaminophen 325 mg PO Q12HR PRN 05/16/15 [History] Aspirin 81 mg PO DAILY 05/16/15 [History] Benztropine Mesylate 0.5 mg PO BID 05/16/15 [History] Diltiazem 120 mg PO DAILY 05/16/15 [History] Docusate 100 mg PO BID 05/16/15 [History] Haloperidol 5 mg PO BID 05/16/15 [History] Hydrochlorothiazide 25 mg PO DAILY 05/16/15 [History] Insulin Aspart 13 unit SQ TID 05/16/15 [History] Insulin Glargine,Hum.rec.anlog 42 unit SQ DAILY 05/16/15 [History] Lamotrigine 100 mg PO HS 05/16/15 [History] Lisinopril 20 mg PO DAILY 05/16/15 [History] [place] Carbonate 300 mg PO HS 05/16/15 [History] Milk of Magnesia 30 ml PO BID 05/16/15 [History] Ranitidine HCl 150 mg PO BID 05/16/15 [History] Sennosides [Senna] 8.6 mg PO BID #60 tablet 05/18/15 [Rx] Tamsulosin HCl [Flomax] 0.4 mg PO DAILY #30 cap.er.24h 05/18/15 [Rx] Sennosides [Senna] 8.6 mg PO DAILY 06/29/15 [History] Albuterol Sulfate [Proair Respiclick] 2 puff IH Q6HR PRN 05/08/19 [History] Amlodipine Besylate 10 mg PO DAILY 05/08/19 [History] Bisacodyl [Woman's Laxative] 10 mg PO DAILY PRN 05/08/19 [History] Budesonide/Formoterol 160/4.5 2 puff BID 05/08/19 [History] Cholecalciferol (D-3) [Vitamin D] 2,000 unit PO DAILY 05/08/19 [History] CloZAPine [Fazaclo] 250 mg PO HS 05/08/19 [History] GlipiZIDE [Glucotrol] 5 mg PO BID 05/08/19 [History] Haloperidol 10 mg PO HS 05/08/19 [History] Omeprazole [PriLOSEC] 20 mg PO BID 05/08/19 [History] Allergy/AdvReac Type Severity Reaction Status Date / Time Penicillins Allergy See Verified 05/14/15 20:14 Comments chocolate Allergy Unknown See Uncoded 05/08/19 01:51 Comments Review of Systems Constitutional: Reports: weakness Eyes: Denies: eye pain, vision change Ears, Nose, Throat: Denies: ear pain, throat pain, dental pain, hearing loss, congestion Cardiovascular: Denies: chest pain, palpitations, dyspnea on exertion Respiratory: Denies: cough, dyspnea, wheezes Gastrointestinal: Denies: abdominal pain, nausea, vomiting, diarrhea, constipation Genitourinary male: Denies: urgency, dysuria, frequency, genital lesions Musculoskeletal: Reports: other Integumentary: Denies: rash, lesions, pruritus Neurological: Denies: headache, weakness, numbness, memory loss Endocrine: Denies: fatigue, heat or cold intolerance Hematologic/Lymphatic: Denies: easy bruising, lymphadenopathy Psychiatry Exam - Constitutional Vitals: Temp Pulse Resp BP Pulse Ox 99.0 F 87 20 155/69 100 05/08/19 12:00 05/08/19 12:00 05/08/19 12:00 05/08/19 12:00 05/08/19 12:00 General appearance: unkempt, disheveled - Musculoskeletal Station: relaxed Strength & Tone: normal for patient - Psychiatric Patient Orientation: Yes Person, Yes Place Level of alertness: Sedated Behavior: uncooperative Eye Contact: No Eye Contact Speech Volume: Soft/Quiet Speech pattern: mumbled Language & Vocabulary: consistent with education Thought Process: [place] Attention Span Ability: Unable to Focus, Unable to Sustain Attention Patient Reliability: Not Reliable Historian Results - Drug Levels and Toxicology Drug Levels and Toxicology: Drug Levels and Toxicity 05/07/19 21:03 [place] 0.5 L - Labs Labs: Laboratory Last Values WBC 24.1 K/mcL (4.3-11.1) H 05/08/19 04:12 RBC 4.09 M/mcL (4.19-5.50) L 05/08/19 04:12 Hgb 10.8 g/dL (12.9-16.9) L 05/08/19 04:12 Hct 34.6 % (37.5-50.1) L 05/08/19 04:12 MCV 84.6 fL (83.0-100.0) 05/08/19 04:12 MCH 26.4 pg (28.0-33.3) L 05/08/19 04:12 MCHC 31.2 g/dL (31.6-35.5) L 05/08/19 04:12 RDW 17.0 % (11.5-14.5) H 05/08/19 04:12 Plt Count 172 K/mcL (140-400) 05/08/19 04:12 MPV 10.8 fL (9.4-12.4) 05/08/19 04:12 Immature Gran % 1.0 % (0-4) 05/08/19 04:12 Seg Neutrophils % 80.5 % 05/08/19 04:12 Lymphocytes % 11.9 % 05/08/19 04:12 Monocytes % 6.1 % 05/08/19 04:12 Eosinophils % 0.3 % 05/08/19 04:12 Basophils % 0.2 % 05/08/19 04:12 Neutrophils # 19.3 K/mcL (1.6-8.9) H 05/08/19 04:12 Lymphocytes # 2.9 K/mcL (0.6-4.6) 05/08/19 04:12 Monocytes # 1.5 K/mcL (0.0-1.3) H 05/08/19 04:12 Eosinophils # 0.1 K/mcL (0.0-0.6) 05/08/19 04:12 Basophils # 0.1 K/mcL (0.0-0.2) 05/08/19 04:12 Reactive Lymphocytes Present (Not Present) A 05/07/19 21:03 ESR >= 130 mm/hr (0-10) H 05/08/19 04:12 PT 13.0 Seconds (9.4-12.1) H 05/07/19 21:03 INR 1.1 05/07/19 21:03 Sodium 136 mEq/L (136-145) 05/08/19 04:12 Potassium 4.0 mEq/L (3.5-5.1) 05/08/19 04:12 Chloride 107 mEq/L (98-107) 05/08/19 04:12 Carbon Dioxide 23 mEq/L (23-29) 05/08/19 04:12 BUN 22 mg/dL (8-23) 05/08/19 04:12 Creatinine 1.89 mg/dL (0.70-1.30) H 05/08/19 04:12 Est GFR ( Amer) 43 (> 60) L 05/08/19 04:12 Est GFR (Non-Af Amer) 36 (> 60) L 05/08/19 04:12 BUN/Creatinine Ratio 12 (6-26) 05/08/19 04:12 Glucose 62 mg/dL (70-105) L 05/08/19 04:12 POC Glucose 194 mg/dL (70-99) H 05/07/19 20:42 Calculated Osmolality 283 (280-300) 05/08/19 04:12 Lactic Acid 1.0 mmol/L (0.5-2.2) 05/07/19 21:03 Calcium 9.1 mg/dL (8.6-10.3) 05/08/19 04:12 Magnesium 2.0 mg/dL (1.6-2.6) 05/07/19 21:03 Total Bilirubin 0.4 mg/dL (0.3-1.0) 05/08/19 04:12 AST 18 Units/L (13-39) 05/08/19 04:12 ALT 13 Units/L (7-52) 05/08/19 04:12 Alkaline Phosphatase 116 Units/L (34-104) H 05/08/19 04:12 Ammonia 45 mcmol/L (16-53) 05/07/19 21:49 Troponin I 0.04 ng/mL (< 0.04) H* 05/08/19 08:17 C-Reactive Protein 179 mg/L (Less than 10) H 05/08/19 04:12 B-Natriuretic Peptide 112 pg/mL (Less than 100) H 05/08/19 04:12 Serum Total Protein 6.6 g/dL (6.4-8.9) 05/08/19 04:12 Albumin 2.9 g/dL (3.5-5.7) L 05/08/19 04:12 Globulin 3.7 g/dL (2.4-3.5) H 05/08/19 04:12 Albumin/Globulin Ratio 0.8 (1.1-2.2) L 05/08/19 04:12 Procalcitonin 2.90 ng/mL (0.00-0.15) H 05/08/19 04:12 TSH 0.367 mcIU/mL (0.340-5.600) 05/08/19 04:12 Urine Color Yellow (Yellow) 05/07/19 21:12 Urine Clarity Clear (Clear) 05/07/19 21:12 Urine pH 6.0 pH Units (5.0-8.0) 05/07/19 21:12 Ur Specific [place] 1.017 (1.010-1.025) 05/07/19 21:12 Urine Protein >=300 mg/dL (Neg-Trace) H 05/07/19 21:12 Urine Glucose (UA) Normal mg/dL (Normal) 05/07/19 21:12 Urine Ketones Negative mg/dL (Negative) 05/07/19 21:12 Urine Blood Moderate (Negative) H 05/07/19 21:12 Urine Nitrite Negative (Negative) 05/07/19 21:12 Urine Bilirubin Negative (Negative) 05/07/19 21:12 Urine Urobilinogen Normal mg/dL (Normal) 05/07/19 21:12 Ur Leukocyte Esterase Negative (Negative) 05/07/19 21:12 Urine Microscopic RBC 15-30 per hpf (0-3) H 05/07/19 21:12 Urine Microscopic WBC 3-5 per hpf (0-3) H 05/07/19 21:12 Ur Squamous Epith Cells Many per lpf (None-Few) H 05/07/19 21:12 Urine Bacteria None Seen per hpf (None-Few) 05/07/19 21:12 Hyaline Casts None Seen per lpf (None-Few) 05/07/19 21:12 [place] 0.5 mEq/L (0.6-1.2) L 05/07/19 21:03 - Impressions Impressions Chest X-Ray 05/07/19 20:44 IMPRESSION: Cardiomegaly with clear lungs. D/ / Jesus Thurston MD / Jesus Thurston MD Interpreting Provider: Jesus Thurston MD Chest CT 05/07/19 22:39 IMPRESSION: No acute abnormality identified. Marked thyromegaly again seen. Thyroid ultrasound could be obtained for further evaluation if clinically warranted. D/ / Jesus Thurston MD / Jesus Thurston MD Interpreting Provider: Jesus Thurston MD Echocardiogram 05/08/19 08:09 Impressions: LVEF 50-55%. Normal LV chamber size and function. Mild concentric left ventricular hypertrophy. Atypical septal motion consistent with bundle branch block. Mild left ventricular diastolic dysfunction. Right ventricle was not well visualized. Grossly, it is normal in function. Unable to estimate RVSP due to lack of TR jet. Left Ventricular Wall Motion: Rest Echo Findings All wall segments showed normal motion. Findings: Study Quality * Technically sub-optimal due to poor echocardiographic windows. ECG Findings * Sinus rhythm with BBB. Left Ventricle * LVEF 50-55%. * Normal LV chamber size and function. * Mild concentric left ventricular hypertrophy. * Atypical septal motion consistent with bundle branch block. * Mild left ventricular diastolic dysfunction. Right Ventricle * Right ventricle was not well visualized. Grossly, it is normal in function. Left Atrium * Mildly dilated left atrium. Right Atrium * Normal right atrial size. Interatrial Septum * Interatrial septum not well evaluated. Aortic Valve * Aortic valve not well visualized. * No aortic regurgitation. * No aortic stenosis. Mitral Valve * Normal mitral valve structure and function. * No mitral regurgitation. * No mitral stenosis. Tricuspid Valve * Normal tricuspid valve structure and function. * No tricuspid regurgitation. * Unable to estimate RVSP due to lack of TR jet. Pulmonic Valve * Pulmonic valve not well visualized. Aorta * Normally sized aortic root. Pericardium * The pericardium appears normal. IVC * Grossly normal IVC dimensions and inspiratory collapse. Pulmonary Artery * Normal visualized portions of the main pulmonary artery. Abdomen/Pelvis CT 05/08/19 22:39 IMPRESSION: 1. Cholelithiasis without scan evidence for acute cholecystitis. 2. Small ventral hernias again seen containing small bowel without small bowel obstruction. 3. Large amount of stool again seen in the colon. D/ / Jesus Thurston MD / Jesus Thurston MD Interpreting Provider: Jesus Thurston MD Consult Discharge Plan - Plan [facility] [Primary Care Provider] -
--- NOTE | 2019-05-08 15:10 | Internal Med Progress Note ---
Hospitalist Progress Note - Encounter Date of Encounter: 05/08/19 Time of Encounter: 15:08 - Subjective Interval History: Patient very somnolent this morning. This patient has a large tongue on exam this may be why he has been having dysphagia issues in the hospital - Exam Vitals: Temp Pulse Resp BP Pulse Ox 99.0 F 87 20 155/69 100 05/08/19 12:00 05/08/19 12:00 05/08/19 12:00 05/08/19 12:00 05/08/19 12:00 Exam: General: Ill-appearing and somnolent HEENT: Tongue large but does not appear that patient has true angioedema. Lymphatics: No mandibular or cervical lymphadenopathy Cardiovascular: RRR. No murmurs. No chest wall tenderness. Lungs: Clear to auscelltation bilaterally. Regular chest rise. Abdomen: Non-tender. No rebound or gaurding. Nl bowel sounds. Extremities: No edema. 2+ pulses radial and pedal pulses Skin: No rahses, abrasions, or contusions. Nl cap refill. Psych: Somnolent and only able to arouse with sternal rub Neuro: Does not participate in exam but appears to be moving all extremities appropraitely - Assessment and Plan (1) SIRS (systemic inflammatory response syndrome) Current Visit: Yes Status: Acute Assessment and Plan: Patient with history of morbid obesity and multiple psychiatric illnesses presents with weakness and complaints of swollen feet but no other complaints in the setting meeting 3/4 SIRS criteria, somnolence on physical exam, WBC of 26.2, ESR >130, neg UA, and neg CT c/a/p for any signs of acute infection. -Case suspicious for endocarditis. Blood cultures ordered and will be followed up on -Apparently patient had nl mental status on admission. Has been somnolent on my exam May need LP but will be difficult with patient's obesity PLAN: - Re-assess patient - If still somnolent, will attempt LP and start patient on ABs for meningitis empirically - F/u blood cultures - Trend labs (2) Mild tongue swelling Current Visit: Yes Status: Acute Assessment and Plan: Tongue noted to be alrge. No evidence of angioedema. Not obtructing airway but is causing some dysphagia. On an ACEi. - HOLD ACEi - Will hold off on steroids currently because no airway compromise and will not be able to effectivly trend leukocytosis with steroids on board - Low threshold to start steroids however (3) Hypertension Current Visit: Yes Status: Acute Assessment and Plan: Hold in setting of SIRS (4) Thyromegaly Current Visit: Yes Status: Acute Assessment and Plan: Noted on CT. TSH nl. - Can undergo thyroid US as an o/p (5) CLARA (acute kidney injury) Current Visit: Yes Status: Acute Assessment and Plan: In setting of SIRS. Improving with IVF - IVF (6) CKD (chronic kidney disease) stage 2, GFR 60-89 ml/min Current Visit: Yes Status: Acute Assessment and Plan: See above (7) Suicidal ideation Current Visit: Yes Status: Acute Assessment and Plan: Apparently told ED staff that he wanted to jump off a bridge to kill himself. Was seen by psych and was too somnolent to be interviewed. - Re-exam by [facility] once mentation clears DVT Prophylaxis: heparin - Time Spent with Patient Total time spent is greater than 50% in coordination of care (as documented) at patient's floor/unit and/or counseling patient: Internal Medicine: Result - Labs CBC & Chem 7: 05/08/19 04:12 05/08/19 04:12 Labs: Short CBC 05/07/19 05/08/19 Range/Units 21:03 04:12 WBC 26.2 H 24.1 H (4.3-11.1) K/mcL Hgb 11.5 L 10.8 L (12.9-16.9) g/dL Hct 36.6 L 34.6 L (37.5-50.1) % Plt Count 162 172 (140-400) K/mcL Neutrophils # 22.0 H 19.3 H (1.6-8.9) K/mcL BMP 05/07/19 05/08/19 21:03 04:12 Sodium 134 L 136 Potassium 4.1 4.0 Chloride 104 107 Carbon Dioxide 25 23 BUN 23 22 Creatinine 2.04 H 1.89 H Glucose 115 H 62 L Calcium 9.6 9.1 Cardiac Enzymes 05/07/19 05/08/19 Range/Units 21:03 08:17 Troponin I 0.04 H* 0.04 H* (< 0.04) ng/mL Liver Function 05/07/19 05/08/19 Range/Units 21:03 04:12 Total Bilirubin 0.4 0.4 (0.3-1.0) mg/dL AST 18 18 (13-39) Units/L ALT 14 13 (7-52) Units/L Alkaline Phosphatase 129 H 116 H (34-104) Units/L Albumin 3.3 L 2.9 L (3.5-5.7) g/dL Urine 05/07/19 Range/Units 21:12 Urine Color Yellow (Yellow) Urine Clarity Clear (Clear) Urine pH 6.0 (5.0-8.0) pH Units Ur Specific [place] 1.017 (1.010-1.025) Urine Protein >=300 H (Neg-Trace) mg/dL Urine Glucose (UA) Normal (Normal) mg/dL - ABG Interpretation ABG results: PT/INR, D-dimer PT 13.0 Seconds (9.4-12.1) H 05/07/19 21:03 - Impressions Impressions Chest X-Ray 05/07/19 20:44 IMPRESSION: Cardiomegaly with clear lungs. D/ / Jesus Thurston MD / Jesus Thurston MD Interpreting Provider: Jesus Thurston MD Chest CT 05/07/19 22:39 IMPRESSION: No acute abnormality identified. Marked thyromegaly again seen. Thyroid ultrasound could be obtained for further evaluation if clinically warranted. D/ / Jesus Thurston MD / Jesus Thurston MD Interpreting Provider: Jesus Thurston MD Echocardiogram 05/08/19 08:09 Impressions: LVEF 50-55%. Normal LV chamber size and function. Mild concentric left ventricular hypertrophy. Atypical septal motion consistent with bundle branch block. Mild left ventricular diastolic dysfunction. Right ventricle was not well visualized. Grossly, it is normal in function. Unable to estimate RVSP due to lack of TR jet. Left Ventricular Wall Motion: Rest Echo Findings All wall segments showed normal motion. Findings: Study Quality * Technically sub-optimal due to poor echocardiographic windows. ECG Findings * Sinus rhythm with BBB. Left Ventricle * LVEF 50-55%. * Normal LV chamber size and function. * Mild concentric left ventricular hypertrophy. * Atypical septal motion consistent with bundle branch block. * Mild left ventricular diastolic dysfunction. Right Ventricle * Right ventricle was not well visualized. Grossly, it is normal in function. Left Atrium * Mildly dilated left atrium. Right Atrium * Normal right atrial size. Interatrial Septum * Interatrial septum not well evaluated. Aortic Valve * Aortic valve not well visualized. * No aortic regurgitation. * No aortic stenosis. Mitral Valve * Normal mitral valve structure and function. * No mitral regurgitation. * No mitral stenosis. Tricuspid Valve * Normal tricuspid valve structure and function. * No tricuspid regurgitation. * Unable to estimate RVSP due to lack of TR jet. Pulmonic Valve * Pulmonic valve not well visualized. Aorta * Normally sized aortic root. Pericardium * The pericardium appears normal. IVC * Grossly normal IVC dimensions and inspiratory collapse. Pulmonary Artery * Normal visualized portions of the main pulmonary artery. Abdomen/Pelvis CT 05/08/19 22:39 IMPRESSION: 1. Cholelithiasis without scan evidence for acute cholecystitis. 2. Small ventral hernias again seen containing small bowel without small bowel obstruction. 3. Large amount of stool again seen in the colon. D/ / Jesus Thurston MD / Jesus Thurston MD Interpreting Provider: Jesus Thurston MD Consult Discharge Plan - Plan [facility]errals: [facility] [Primary Care Provider] -
[2019-05-08] MEDS: *HR* Heparin 5,000 UNIT/ML VIAL SQ SCH (16:48)
[2019-05-08] MEDS: methylPREDNISolone 125 MG/2 ML VIAL IVP SCH (17:45)
[2019-05-08] MEDS: Lithium Carbonate 300 MG CAPSULE PO SCH (20:37)
[2019-05-08] MEDS: lamoTRIgine 100 MG TABLET PO SCH (20:46)
[2019-05-08] MEDS ORDERED: cloZAPine 100 MG TABLET PO SCH (21:00)
[2019-05-08] MEDS ORDERED: CLOZAPINE 250 MG PO SCH (21:00)
[2019-05-08] MEDS ORDERED: cloZAPine 25 MG TABLET PO SCH (21:00)
[2019-05-09] MEDS: Artificial Tears SOLN 15 ML BOTTLE BOTH EYES SCH ×5 (03:42→21:34)
[2019-05-09] MEDS: methylPREDNISolone 125 MG/2 ML VIAL IVP SCH ×2 (05:59→15:51)
[2019-05-09] MEDS: *HR* Heparin 5,000 UNIT/ML VIAL SQ SCH ×2 (06:00→15:52)
[2019-05-09] MEDS: Insulin LISPRO 300 UNITS/3 ML VIAL SQ SCH ×4 (07:52→21:36)
[2019-05-09] MEDS: Cholecalciferol (D-3) 1,000 UNIT (25MCG) TABLET PO SCH (07:52)
[2019-05-09] MEDS: Sennosides 8.6 MG TABLET PO SCH ×2 (07:52→21:35)
[2019-05-09] MEDS: Aspirin 81 MG TAB.CHEW PO SCH (07:53)
[2019-05-09] MEDS: Chlorhexidine Rinse 15 ML MOUTHWASH MM SCH ×2 (07:53→21:34)
[2019-05-09 08:06] LABS: Hematocrit 36.5 % (37.5-50.1); Hemoglobin 11.3 g/dL (12.9-16.9); Mean Corpuscular Hemoglobin 26.3 pg (28.0-33.3); Mean Corpuscular Volume 84.9 fL (83.0-100.0); Mean Platelet Volume 11.8 fL (9.4-12.4); Platelet Count 183 K/mcL (140-400); Red Cell Distribution Width 17.2 % (11.5-14.5); White Blood Count 14.4 K/mcL (4.3-11.1)
[2019-05-09] MEDS: Famotidine 20 MG TABLET PO SCH ×2 (08:12→15:51)
[2019-05-09 08:27] LABS: Calcium 9.1 mg/dL (8.6-10.3); Potassium 4.9 mEq/L (3.5-5.1)
[2019-05-09] MEDS: Budesonide/Formoterol 160/4.5 1 PUFF INH IH SCH ×2 (09:42→20:13)
--- NOTE | 2019-05-09 12:46 | Psychiatry Progress Note ---
Date of Encounter: 05/09/19 Time of Encounter: 12:39 Subjective Interval history: Client awake and alert today. Able to have a conversation but difficult to understand due to angioedema. Client has Schizophrenia [facility] Given his meds everyday by staff so he is current on them. Denies any recent changes in his medication regimen. Client endorsed suicidal thoughts at time of admission. Continues to endorse SI today but no intent or plan. Client states he has had suicidal thoughts off and on for years. No history of attempts. SI likely part of his illness. Currently takes two medications that specifically target suicidal thoughts, [place] and Clozapine. [place] level 0.5 at time of admission. Client appears chronic but stable. Elaine in his thought process but no overt psychosis. No responding to internal stimuli. SI present but likely at baseline. Review of Systems Constitutional: Reports: weakness Eyes: Denies: eye pain, eye discharge Ears, Nose, Throat: Reports: other Cardiovascular: Denies: chest pain, palpitations, dyspnea on exertion Respiratory: Reports: other Gastrointestinal: Denies: abdominal pain, nausea, vomiting, diarrhea, constipation Musculoskeletal: Denies: joint swelling, joint pain Neurological: Denies: headache, weakness, numbness, memory loss Results - Vital Signs Vital Signs: Temp Pulse Resp BP Pulse Ox 97.9 F 94 16 164/85 95 05/09/19 11:00 05/09/19 11:00 05/09/19 11:00 05/09/19 11:00 05/09/19 11:00 - Labs Labs: Laboratory Results - last 24 hr 05/08/19 05/08/19 05/08/19 08:05 08:08 08:54 WBC RBC Hgb Hct MCV MCH MCHC RDW Plt Count MPV Sodium Potassium Chloride Carbon Dioxide BUN Creatinine Est GFR ( Amer) Est GFR (Non-Af Amer) BUN/Creatinine Ratio Glucose POC Glucose 49 L* 85 102 H Calculated Osmolality Calcium 05/08/19 05/08/19 05/08/19 12:05 15:59 19:49 WBC RBC Hgb Hct MCV MCH MCHC RDW Plt Count MPV Sodium Potassium Chloride Carbon Dioxide BUN Creatinine Est GFR ( Amer) Est GFR (Non-Af Amer) BUN/Creatinine Ratio Glucose POC Glucose 95 119 H 153 H Calculated Osmolality Calcium 05/09/19 05/09/19 07:09 07:09 WBC 14.4 H RBC 4.30 Hgb 11.3 L Hct 36.5 L MCV 84.9 MCH 26.3 L MCHC 31.0 L RDW 17.2 H Plt Count 183 MPV 11.8 Sodium 140 Potassium 4.9 Chloride 104 Carbon Dioxide 22 L BUN 28 H Creatinine 1.73 H Est GFR ( Amer) 48 L Est GFR (Non-Af Amer) 39 L BUN/Creatinine Ratio 16 Glucose 329 H POC Glucose Calculated Osmolality 308 H Calcium 9.1 - Impressions ITS Impressions Chest X-Ray 05/07/19 20:44 IMPRESSION: Cardiomegaly with clear lungs. D/ / Jesus Thurston MD / Jesus Thurston MD Interpreting Provider: Jesus Thurston MD Chest CT 05/07/19 22:39 IMPRESSION: No acute abnormality identified. Marked thyromegaly again seen. Thyroid ultrasound could be obtained for further evaluation if clinically warranted. D/ / Jesus Thurston MD / Jesus Thurston MD Interpreting Provider: Jesus Thurston MD Echocardiogram 05/08/19 08:09 Impressions: LVEF 50-55%. Normal LV chamber size and function. Mild concentric left ventricular hypertrophy. Atypical septal motion consistent with bundle branch block. Mild left ventricular diastolic dysfunction. Right ventricle was not well visualized. Grossly, it is normal in function. Unable to estimate RVSP due to lack of TR jet. Left Ventricular Wall Motion: Rest Echo Findings All wall segments showed normal motion. Findings: Study Quality * Technically sub-optimal due to poor echocardiographic windows. ECG Findings * Sinus rhythm with BBB. Left Ventricle * LVEF 50-55%. * Normal LV chamber size and function. * Mild concentric left ventricular hypertrophy. * Atypical septal motion consistent with bundle branch block. * Mild left ventricular diastolic dysfunction. Right Ventricle * Right ventricle was not well visualized. Grossly, it is normal in function. Left Atrium * Mildly dilated left atrium. Right Atrium * Normal right atrial size. Interatrial Septum * Interatrial septum not well evaluated. Aortic Valve * Aortic valve not well visualized. * No aortic regurgitation. * No aortic stenosis. Mitral Valve * Normal mitral valve structure and function. * No mitral regurgitation. * No mitral stenosis. Tricuspid Valve * Normal tricuspid valve structure and function. * No tricuspid regurgitation. * Unable to estimate RVSP due to lack of TR jet. Pulmonic Valve * Pulmonic valve not well visualized. Aorta * Normally sized aortic root. Pericardium * The pericardium appears normal. IVC * Grossly normal IVC dimensions and inspiratory collapse. Pulmonary Artery * Normal visualized portions of the main pulmonary artery. Abdomen/Pelvis CT 05/08/19 22:39 IMPRESSION: 1. Cholelithiasis without scan evidence for acute cholecystitis. 2. Small ventral hernias again seen containing small bowel without small bowel obstruction. 3. Large amount of stool again seen in the colon. D/ / Jesus Thurston MD / Jesus Thurston MD Interpreting Provider: Jesus Thurston MD Assessment and Plan (1) Schizophrenia Current visit: Yes Status: Chronic Additional Plan: Client endorses SI without intent or plan. Has experienced SI off and on for years with no history of attempts. Has chronic Schizophrenia and resides in a long term. Suspect SI is part of his illness pattern and likely present at baseline. Does not present as an immediate threat to himself. Likely does not need a sitter for mental health reasons. Client already takes the two mental health medications that can be used to specifically target suicidal thoughts, [place] and Clozapine. Either medication could be increased for increased efficacy. However, would probably hold off on making any dose adjustments until medical issues have cleared up and source of angioedema has been identified. Will follow loosely and can always reevaluate when client closer to discharge. Risks, benefits, side effects, alternatives discussed w/pt: Yes Patient agreeable to treatment: Yes Qualifiers: Schizophrenia type: unspecified Qualified Code(s): F20.9 - Schizophrenia, unspecified Consult Discharge Plan - Plan [facility]Primary Care Provider[facility] - Psychiatry Exam - Constitutional Vitals: Temp Pulse Resp BP Pulse Ox 97.9 F 94 16 164/85 95 05/09/19 11:00 05/09/19 11:00 05/09/19 11:00 05/09/19 11:00 05/09/19 11:00 General appearance: disheveled - Musculoskeletal Station: relaxed Strength & Tone: normal for patient - Psychiatric Patient Orientation: Yes Person, Yes Place Level of alertness: Alert Behavior: calm, cooperative Psychomotor activity: Normal Eye Contact: Maintains Eye Contact Mood Description: Depressed Affect description: congruent with mood Speech Volume: Normal Speech pattern: slurred Language & Vocabulary: consistent with education Thought Process: Elaine Thought Content: Yes Suicidal ideation, No Homicidal ideation, No Overt delusions Perceptual Disturbances: No Reacting to internal stimuli Attention Span Ability: Capable of Focused Attention Memory Description: Grossly Intact Patient Reliability: Reliable Historian Fund of knowledge: Yes below average Intelligence Estimate: Below Average Judgment: Fair Insight: Partial
--- NOTE | 2019-05-09 14:06 | Internal Med Progress Note ---
Hospitalist Progress Note - Encounter Date of Encounter: 05/09/19 Time of Encounter: 14:01 - Subjective Interval History: Doing better this morning. Feeling like tongue is smaller. - Exam Vitals: Temp Pulse Resp BP Pulse Ox 97.9 F 94 16 164/85 95 05/09/19 11:00 05/09/19 11:00 05/09/19 11:00 05/09/19 11:00 05/09/19 11:00 Exam: General: Ill-appearing and somnolent HEENT: Tongue large but does not appear that patient has true angioedema. Lymphatics: No mandibular or cervical lymphadenopathy Cardiovascular: RRR. No murmurs. No chest wall tenderness. Lungs: Clear to auscelltation bilaterally. Regular chest rise. Abdomen: Non-tender. No rebound or gaurding. Nl bowel sounds. Extremities: No edema. 2+ pulses radial and pedal pulses Skin: No rahses, abrasions, or contusions. Nl cap refill. Psych: Somnolent and only able to arouse with sternal rub Neuro: Does not participate in exam but appears to be moving all extremities appropraitely - Assessment and Plan (1) SIRS (systemic inflammatory response syndrome) Current Visit: Yes Status: Acute Assessment and Plan: Patient with history of morbid obesity and multiple psychiatric illnesses presents with weakness and complaints of swollen feet but no other complaints in the setting meeting 3/4 SIRS criteria, somnolence on physical exam, WBC of 26.2, ESR >130, neg UA, and neg CT c/a/p for any signs of acute infection. -Case suspicious for endocarditis. Blood cultures no growth to date -Downtrending leukocytosis without intervention. No longer having fevers. -May have had aspiration event leading to acute fever and leukocytosis despite no evidence of this on chest x-ray Radiographic evidence does not always occur -Prudent to follow cultures closely. We will repeat blood cultures to adequately assess for endocarditis. PLAN: - Repeat blood cultures - F/u old blood cultures - Trend labs (2) Angioedema Current Visit: Yes Status: Acute Assessment and Plan: Tongue noted to be large. No swelling of lips. Not obstructing airway but is causing some dysphagia. On an ACEi. - HOLD ACEi - Steroids - Benadryl - H2 Sigifredo (3) Hypertension Current Visit: Yes Status: Acute Assessment and Plan: Hold in setting of SIRS (4) Thyromegaly Current Visit: Yes Status: Acute Assessment and Plan: Noted on CT. TSH nl. - Can undergo thyroid US as an o/p (5) CLARA (acute kidney injury) Current Visit: Yes Status: Acute Assessment and Plan: In setting of SIRS. Improving with IVF - IVF (6) CKD (chronic kidney disease) stage 2, GFR 60-89 ml/min Current Visit: Yes Status: Acute Assessment and Plan: See above (7) Suicidal ideation Current Visit: Yes Status: Acute Assessment and Plan: Apparently told ED staff that he wanted to jump off a bridge to kill himself. Wa s seen by psych and was too somnolent to be interviewed. - Re-exam by [facility] once mentation clears DVT Prophylaxis: heparin Internal Medicine: Result - Labs CBC & Chem 7: 05/09/19 07:09 05/09/19 07:09 Labs: Short CBC 05/09/19 Range/Units 07:09 WBC 14.4 H (4.3-11.1) K/mcL Hgb 11.3 L (12.9-16.9) g/dL Hct 36.5 L (37.5-50.1) % Plt Count 183 (140-400) K/mcL BMP 05/09/19 07:09 Sodium 140 Potassium 4.9 Chloride 104 Carbon Dioxide 22 L BUN 28 H Creatinine 1.73 H Glucose 329 H Calcium 9.1 - ABG Interpretation ABG results: PT/INR, D-dimer PT 13.0 Seconds (9.4-12.1) H 05/07/19 21:03 Consult Discharge Plan - Plan [facility]errals: [facility] [Primary Care Provider] -
[2019-05-09] MEDS: Nicotine 2 MG GUM BC SCH ×2 (17:11→21:34)
[2019-05-09] MEDS: amLODIPine 5 MG TABLET PO SCH (17:11)
[2019-05-09] MEDS: lamoTRIgine 100 MG TABLET PO SCH (21:35)
[2019-05-09] MEDS: Lithium Carbonate 300 MG CAPSULE PO SCH (21:35)
[2019-05-10] MEDS: Artificial Tears SOLN 15 ML BOTTLE BOTH EYES SCH ×3 (00:09→20:43)
[2019-05-10] MEDS: Nicotine 2 MG GUM BC SCH ×7 (00:09→20:44)
[2019-05-10] MEDS: *HR* Heparin 5,000 UNIT/ML VIAL SQ SCH ×2 (05:14→18:01)
[2019-05-10] MEDS: methylPREDNISolone 125 MG/2 ML VIAL IVP SCH (05:14)
[2019-05-10 06:15] LABS: Hematocrit 34.5 % (37.5-50.1); Hemoglobin 10.9 g/dL (12.9-16.9); Mean Corpuscular HGB Conc 31.6 g/dL (31.6-35.5); Mean Corpuscular Hemoglobin 26.3 pg (28.0-33.3); Mean Corpuscular Volume 83.1 fL (83.0-100.0); Mean Platelet Volume 11.8 fL (9.4-12.4); Platelet Count 219 K/mcL (140-400); Red Blood Count 4.15 M/mcL (4.19-5.50); Red Cell Distribution Width 16.6 % (11.5-14.5); White Blood Count 19.7 K/mcL (4.3-11.1)
[2019-05-10 06:32] LABS: Calcium 9.4 mg/dL (8.6-10.3)
[2019-05-10] MEDS: Aspirin 81 MG TAB.CHEW PO SCH (08:11)
[2019-05-10] MEDS: Sennosides 8.6 MG TABLET PO SCH ×2 (08:12→20:43)
[2019-05-10] MEDS: amLODIPine 5 MG TABLET PO SCH (08:12)
[2019-05-10] MEDS: Famotidine 20 MG TABLET PO SCH ×2 (08:12→16:45)
[2019-05-10] MEDS: Chlorhexidine Rinse 15 ML MOUTHWASH MM SCH ×2 (08:13→20:43)
[2019-05-10] MEDS: Cholecalciferol (D-3) 1,000 UNIT (25MCG) TABLET PO SCH (08:13)
[2019-05-10] MEDS: Nicotine 21 MG PATCH.TD24 TD SCH (08:14)
[2019-05-10] MEDS: Insulin LISPRO 300 UNITS/3 ML VIAL SQ SCH ×4 (08:17→20:44)
[2019-05-10] MEDS: Budesonide/Formoterol 160/4.5 1 PUFF INH IH SCH ×2 (10:52→20:25)
--- NOTE | 2019-05-10 14:56 | Internal Med Progress Note ---
Hospitalist Progress Note - Encounter Date of Encounter: 05/10/19 Time of Encounter: 14:54 - Subjective Interval History: Patient feels good today. Tongue much less swollen. - Exam Vitals: Temp Pulse Resp BP Pulse Ox 97.9 F 81 16 156/83 98 05/10/19 11:25 05/10/19 11:25 05/10/19 11:25 05/10/19 11:25 05/10/19 11:25 Exam: General: Ill-appearing and somnolent HEENT: Tongue less swollen than yesterday Lymphatics: No mandibular or cervical lymphadenopathy Cardiovascular: RRR. No murmurs. No chest wall tenderness. Lungs: Clear to auscelltation bilaterally. Regular chest rise. Abdomen: Non-tender. No rebound or gaurding. Nl bowel sounds. Extremities: No edema. 2+ pulses radial and pedal pulses Skin: No rahses, abrasions, or contusions. Nl cap refill. Psych: Somnolent and only able to arouse with sternal rub Neuro: Does not participate in exam but appears to be moving all extremities appropraitely - Assessment and Plan (1) Angioedema Current Visit: Yes Status: Acute Assessment and Plan: Tongue noted to be large. No swelling of lips. Not obstructing airway but is causing some dysphagia. On an ACEi. Much improved. Will d/c steriods given need to trend WBC and continue other therapies. - HOLD ACEi - D/c Steroids - Benadryl - H2 Sigifredo - PHOTOVOLTAIC TESTING TECHNICIAN eval with barium swallow (2) SIRS (systemic inflammatory response syndrome) Current Visit: Yes Status: Acute Assessment and Plan: Patient with history of morbid obesity and multiple psychiatric illnesses presents with weakness and complaints of swollen feet but no other complaints in the setting meeting 3/4 SIRS criteria, somnolence on physical exam, WBC of 26.2, ESR >130, neg UA, and neg CT c/a/p for any signs of acute infection. -Case suspicious for endocarditis. Blood cultures no growth to date -Leukocytosis increased but in the setting of steroid use. Will d/steroids given improvement in angioedema and trend -Patient has been afebrile PLAN: - Trend leukocytosis - Monitor for fever - F/u blood cultures (3) Hypertension Current Visit: Yes Status: Acute Assessment and Plan: Restart home meds (4) Thyromegaly Current Visit: Yes Status: Acute Assessment and Plan: Noted on CT. TSH nl. - Can undergo thyroid US as an o/p (5) CALRA (acute kidney injury) Current Visit: Yes Status: Acute Assessment and Plan: In setting of SIRS. Improving with IVF - IVF (6) CKD (chronic kidney disease) stage 2, GFR 60-89 ml/min Current Visit: Yes Status: Acute Assessment and Plan: See above (7) Suicidal ideation Current Visit: Yes Status: Acute Assessment and Plan: Apparently told ED staff that he wanted to jump off a bridge to kill himself. Was seen by psych and was too somnolent to be interviewed. - Re-exam by [facility] once mentation clears DVT Prophylaxis: heparin Internal Medicine: Result - Labs CBC & Chem 7: 05/10/19 05:57 05/10/19 05:57 Labs: Short CBC 05/10/19 Range/Units 05:57 WBC 19.7 H (4.3-11.1) K/mcL Hgb 10.9 L (12.9-16.9) g/dL Hct 34.5 L (37.5-50.1) % Plt Count 219 (140-400) K/mcL BMP 05/10/19 05:57 Sodium 135 L Potassium 5.0 Chloride 102 Carbon Dioxide 22 L BUN 46 H Creatinine 1.99 H Glucose 447 H Calcium 9.4 - ABG Interpretation ABG results: PT/INR, D-dimer PT 13.0 Seconds (9.4-12.1) H 05/07/19 21:03 Consult Discharge Plan - Plan [facility]: [facility] [Primary Care Provider] -
[2019-05-10] MEDS ORDERED: E-Z-HD (BARIUM SULF) SUSPENSION PO ONE (15:35)
[2019-05-10] MEDS ORDERED: E-Z-PAQUE (BARIUM SULF) SUSP 1 BOTTLE PO ONE (15:35)
[2019-05-10] MEDS: lamoTRIgine 100 MG TABLET PO SCH (20:43)
[2019-05-10] MEDS: Lithium Carbonate 300 MG CAPSULE PO SCH (20:43)
[2019-05-11] MEDS: Artificial Tears SOLN 15 ML BOTTLE BOTH EYES SCH ×8 (00:41→22:04)
[2019-05-11 04:19] LABS: Hematocrit 37.7 % (37.5-50.1); Mean Corpuscular HGB Conc 31.8 g/dL (31.6-35.5); Mean Corpuscular Hemoglobin 26.4 pg (28.0-33.3); Mean Corpuscular Volume 82.9 fL (83.0-100.0); Platelet Count 226 K/mcL (140-400); Red Blood Count 4.55 M/mcL (4.19-5.50); Red Cell Distribution Width 16.4 % (11.5-14.5); White Blood Count 18.9 K/mcL (4.3-11.1)
[2019-05-11 04:38] LABS: Calcium 9.9 mg/dL (8.6-10.3); Potassium 5.1 mEq/L (3.5-5.1)
[2019-05-11] MEDS: Nicotine 2 MG GUM BC SCH ×5 (06:14→12:41)
[2019-05-11] MEDS: *HR* Heparin 5,000 UNIT/ML VIAL SQ SCH ×2 (06:15→17:30)
[2019-05-11] MEDS: Budesonide/Formoterol 160/4.5 1 PUFF INH IH SCH ×2 (07:56→20:15)
[2019-05-11] MEDS: Chlorhexidine Rinse 15 ML MOUTHWASH MM SCH (09:27)
[2019-05-11] MEDS: Cholecalciferol (D-3) 1,000 UNIT (25MCG) TABLET PO SCH (09:28)
[2019-05-11] MEDS: Famotidine 20 MG TABLET PO SCH ×2 (09:28→17:30)
[2019-05-11] MEDS: Sennosides 8.6 MG TABLET PO SCH ×2 (09:28→22:02)
[2019-05-11] MEDS: amLODIPine 5 MG TABLET PO SCH (09:28)
[2019-05-11] MEDS: Aspirin 81 MG TAB.CHEW PO SCH (09:28)
[2019-05-11] MEDS: Nicotine 21 MG PATCH.TD24 TD SCH (09:28)
[2019-05-11] MEDS: Insulin LISPRO 300 UNITS/3 ML VIAL SQ SCH ×4 (09:29→22:04)
--- NOTE | 2019-05-11 12:00 | Internal Med Progress Note ---
Hospitalist Progress Note - Encounter Date of Encounter: 05/11/19 Time of Encounter: 11:58 - Subjective Interval History: Vision with no complaints this morning. Tongue feels back to normal. No issues with pain. Denies pain whatsoever. No breathing issues. Denies cough. - Exam Vitals: Temp Pulse Resp BP Pulse Ox 98.3 F 75 16 157/83 96 05/11/19 07:21 05/11/19 07:21 05/11/19 07:45 05/11/19 07:21 05/11/19 07:45 Exam: General: Ill-appearing and somnolent HEENT: Tongue back to normal. Lymphatics: No mandibular or cervical lymphadenopathy Cardiovascular: RRR. No murmurs. No chest wall tenderness. Lungs: Clear to auscelltation bilaterally. Regular chest rise. Abdomen: Non-tender. No rebound or gaurding. Nl bowel sounds. Extremities: No edema. 2+ pulses radial and pedal pulses Skin: No rahses, abrasions, or contusions. Nl cap refill. Psych: Somnolent and only able to arouse with sternal rub Neuro: Does not participate in exam but appears to be moving all extremities appropraitely - Assessment and Plan (1) Angioedema Current Visit: Yes Status: Acute Assessment and Plan: Tongue noted to be large. No swelling of lips. Not obstructing airway but is causing some dysphagia. On an ACEi. Status post 48 hours of IV steroids and Benadryl. Now completely resolved. - HOLD ACEi indefinitely (2) SIRS (systemic inflammatory response syndrome) Current Visit: Yes Status: Acute Assessment and Plan: Patient with history of morbid obesity and multiple psychiatric illnesses pr esents with weakness and complaints of swollen feet but no other complaints in the setting meeting 3/4 SIRS criteria, somnolence on physical exam, WBC of 26.2, ESR >130, neg UA, and neg CT c/a/p for any signs of acute infection. -Source still unclear. -Blood cultures no growth to date -Leukocytosis slightly decreased. Patient has been afebrile -May have been a stress response from angioedema -Fabrica can cause leukocytes but wouldnt expect fever or ESR/CRP elevations -Will add-on a peripheral smear path review today and repeat ESR/CRP If leukocytosis still persistent tomorrow recommend onc consult PLAN: - Peripheral smear path review - ESR/CRP repeat - Trend leukocytosis - Monitor for fever - F/u blood cultures (3) Hypertension Current Visit: Yes Status: Acute Assessment and Plan: Restart home meds (4) Thyromegaly Current Visit: Yes Status: Acute Assessment and Plan: Noted on CT. TSH nl. - Can undergo thyroid US as an o/p (5) CKD (chronic kidney disease) stage 2, GFR 60-89 ml/min Current Visit: Yes Status: Acute Assessment and Plan: At his baseline (6) Suicidal ideation Current Visit: Yes Status: Acute Assessment and Plan: Apparently told ED staff that he wanted to jump off a bridge to kill himself. Was seen by psych and think he is at his baseline. - Continue home psych meds DVT Prophylaxis: heparin - Time Spent with Patient Total time spent is greater than 50% in coordination of care (as documented) at patient's floor/unit and/or counseling patient: Internal Medicine: Result - Labs CBC & Chem 7: 05/11/19 03:46 05/11/19 03:46 Labs: Short CBC 05/11/19 Range/Units 03:46 WBC 18.9 H (4.3-11.1) K/mcL Hgb 12.0 L (12.9-16.9) g/dL Hct 37.7 (37.5-50.1) % Plt Count 226 (140-400) K/mcL BMP 05/11/19 03:46 Sodium 134 L Potassium 5.1 Chloride 103 Carbon Dioxide 23 BUN 50 H Creatinine 2.06 H Glucose 329 H Calcium 9.9 - ABG Interpretation ABG results: PT/INR, D-dimer PT 13.0 Seconds (9.4-12.1) H 05/07/19 21:03 - Impressions Impressions Videofluoroscopic Swallow 05/10/19 09:13 IMPRESSION: 1. Single episode of transient laryngeal penetration, without evidence of aspiration with thin barium. 2. No additional episodes of laryngeal penetrations were seen with multiple swallows with thin barium. 3. No evidence of penetration or aspiration with applesauce consistency barium or barium coated cracker. 4. Please see separate speech pathology report for full discussion of findings and recommendations. D/ / Edd Hoffman MD / Edd Hoffman MD Interpreting Provider: Edd Hoffman MD Consult Discharge Plan - Plan [facility]errals: [facility] [Primary Care Provider] -
[2019-05-11 13:38] LABS: Basophils % 0.2 %; Immature Granulocytes % 2.3 % (0-4); Immature Platelets 5.8 % (1.1-6.1); Lymphocytes # 1.7 K/mcL (0.6-4.6); Lymphocytes % 8.8 %; Monocytes # 0.8 K/mcL (0.0-1.3); Monocytes % 4.1 %; Neutrophils # 16.7 K/mcL (1.6-8.9); Segmented Neutrophils % 84.6 %
[2019-05-11 13:39] LABS: Nucleated Red Blood Cells 0.1 /100 WBC (0)
[2019-05-11] MEDS: lamoTRIgine 100 MG TABLET PO SCH (22:02)
[2019-05-11] MEDS: Lithium Carbonate 300 MG CAPSULE PO SCH (22:02)
[2019-05-12] MEDS: Artificial Tears SOLN 15 ML BOTTLE BOTH EYES SCH ×6 (00:03→23:24)
[2019-05-12] MEDS: *HR* Heparin 5,000 UNIT/ML VIAL SQ SCH ×2 (05:32→18:33)
[2019-05-12 06:33] LABS: Hematocrit 35.5 % (37.5-50.1); Hemoglobin 11.4 g/dL (12.9-16.9); Mean Corpuscular HGB Conc 32.1 g/dL (31.6-35.5); Mean Corpuscular Hemoglobin 26.6 pg (28.0-33.3); Mean Corpuscular Volume 82.9 fL (83.0-100.0); Mean Platelet Volume 12.1 fL (9.4-12.4); Platelet Count 238 K/mcL (140-400); Red Blood Count 4.28 M/mcL (4.19-5.50); Red Cell Distribution Width 16.3 % (11.5-14.5)
[2019-05-12 07:07] LABS: Magnesium 2.1 mg/dL (1.6-2.6); Potassium 4.7 mEq/L (3.5-5.1)
[2019-05-12] MEDS: Budesonide/Formoterol 160/4.5 1 PUFF INH IH SCH ×2 (07:41→21:57)
[2019-05-12] MEDS: Famotidine 20 MG TABLET PO SCH ×2 (07:57→16:15)
[2019-05-12] MEDS: Sennosides 8.6 MG TABLET PO SCH ×2 (08:00→20:14)
[2019-05-12] MEDS: Cholecalciferol (D-3) 1,000 UNIT (25MCG) TABLET PO SCH (08:00)
[2019-05-12] MEDS: Aspirin 81 MG TAB.CHEW PO SCH (08:00)
[2019-05-12] MEDS: Nicotine 21 MG PATCH.TD24 TD SCH (08:01)
[2019-05-12] MEDS: amLODIPine 5 MG TABLET PO SCH (08:01)
[2019-05-12] MEDS: Insulin LISPRO 300 UNITS/3 ML VIAL SQ SCH ×4 (08:06→22:45)
[2019-05-12] MEDS: hydrALAZINE 25 MG TABLET PO SCH ×3 (10:59→23:24)
--- NOTE | 2019-05-12 11:11 | Psychiatry Progress Note ---
Date of Encounter: 05/12/19 Time of Encounter: 08:00 Results - Vital Signs Vital Signs: Temp Pulse Resp BP Pulse Ox 98.7 F 94 18 164/91 95 05/12/19 07:12 05/12/19 07:12 05/12/19 07:42 05/12/19 07:12 05/12/19 07:42 - Labs Labs: Laboratory Results - last 24 hr 05/11/19 05/11/19 05/11/19 03:46 03:46 07:26 WBC 18.9 H RBC 4.55 Hgb 12.0 L Hct 37.7 MCV 82.9 L MCH 26.4 L MCHC 31.8 RDW 16.4 H Plt Count 226 MPV 11.0 Immature Gran % 2.3 Seg Neutrophils % 84.6 Lymphocytes % 8.8 Monocytes % 4.1 Eosinophils % 0.0 Basophils % 0.2 Neutrophils # 16.7 H Lymphocytes # 1.7 Monocytes # 0.8 Eosinophils # 0.0 Basophils # 0.0 Nucleated RBCs/100 WBC 0.1 H Immature Plt Fraction 5.8 Smear Path Review See Below ESR Sodium 134 L Potassium 5.1 Chloride 103 Carbon Dioxide 23 BUN 50 H Creatinine 2.06 H Est GFR ( Amer) 39 L Est GFR (Non-Af Amer) 32 L BUN/Creatinine Ratio 24 Glucose 329 H POC Glucose 349 H Calculated Osmolality 304 H Calcium 9.9 Magnesium C-Reactive Protein 05/11/19 05/11/19 05/12/19 12:27 16:16 05:00 WBC 15.0 H RBC 4.28 Hgb 11.4 L Hct 35.5 L MCV 82.9 L MCH 26.6 L MCHC 32.1 RDW 16.3 H Plt Count 238 MPV 12.1 Immature Gran % Seg Neutrophils % Lymphocytes % Monocytes % Eosinophils % Basophils % Neutrophils # Lymphocytes # Monocytes # Eosinophils # Basophils # Nucleated RBCs/100 WBC Immature Plt Fraction Smear Path Review ESR Sodium Potassium Chloride Carbon Dioxide BUN Creatinine Est GFR ( Amer) Est GFR (Non-Af Amer) BUN/Creatinine Ratio Glucose POC Glucose 263 H 111 H Calculated Osmolality Calcium Magnesium C-Reactive Protein 05/12/19 05/12/19 05/12/19 05:00 05:00 05:00 WBC RBC Hgb Hct MCV MCH MCHC RDW Plt Count MPV Immature Gran % Seg Neutrophils % Lymphocytes % Monocytes % Eosinophils % Basophils % Neutrophils # Lymphocytes # Monocytes # Eosinophils # Basophils # Nucleated RBCs/100 WBC Immature Plt Fraction Smear Path Review ESR 99 H Sodium 137 Potassium 4.7 Chloride 105 Carbon Dioxide 26 BUN 42 H Creatinine 2.01 H Est GFR ( Amer) 40 L Est GFR (Non-Af Amer) 33 L BUN/Creatinine Ratio 21 Glucose 250 H POC Glucose Calculated Osmolality 303 H Calcium 10.0 Magnesium 2.1 C-Reactive Protein 20 H - Impressions ITS Impressions Chest X-Ray 05/07/19 20:44 IMPRESSION: Cardiomegaly with clear lungs. D/ / Jesus Thurston MD / Jesus Thurston MD Interpreting Provider: Jesus Thurston MD Chest CT 05/07/19 22:39 IMPRESSION: No acute abnormality identified. Marked thyromegaly again seen. Thyroid ultrasound could be obtained for further evaluation if clinically warranted. D/ / Jesus Thurston MD / Jesus Thurston MD Interpreting Provider: Jesus Thurston MD Echocardiogram 05/08/19 08:09 Impressions: LVEF 50-55%. Normal LV chamber size and function. Mild concentric left ventricular hypertrophy. Atypical septal motion consistent with bundle branch block. Mild left ventricular diastolic dysfunction. Right ventricle was not well visualized. Grossly, it is normal in function. Unable to estimate RVSP due to lack of TR jet. Left Ventricular Wall Motion: Rest Echo Findings All wall segments showed normal motion. Findings: Study Quality * Technically sub-optimal due to poor echocardiographic windows. ECG Findings * Sinus rhythm with BBB. Left Ventricle * LVEF 50-55%. * Normal LV chamber size and function. * Mild concentric left ventricular hypertrophy. * Atypical septal motion consistent with bundle branch block. * Mild left ventricular diastolic dysfunction. Right Ventricle * Right ventricle was not well visualized. Grossly, it is normal in function. Left Atrium * Mildly dilated left atrium. Right Atrium * Normal right atrial size. Interatrial Septum * Interatrial septum not well evaluated. Aortic Valve * Aortic valve not well visualized. * No aortic regurgitation. * No aortic stenosis. Mitral Valve * Normal mitral valve structure and function. * No mitral regurgitation. * No mitral stenosis. Tricuspid Valve * Normal tricuspid valve structure and function. * No tricuspid regurgitation. * Unable to estimate RVSP due to lack of TR jet. Pulmonic Valve * Pulmonic valve not well visualized. Aorta * Normally sized aortic root. Pericardium * The pericardium appears normal. IVC * Grossly normal IVC dimensions and inspiratory collapse. Pulmonary Artery * Normal visualized portions of the main pulmonary artery. Abdomen/Pelvis CT 05/08/19 22:39 IMPRESSION: 1. Cholelithiasis without scan evidence for acute cholecystitis. 2. Small ventral hernias again seen containing small bowel without small bowel obstruction. 3. Large amount of stool again seen in the colon. D/ / Jesus Thurston MD / Jesus Thurston MD Interpreting Provider: Jesus Thurston MD Videofluoroscopic Swallow 05/10/19 09:13 IMPRESSION: 1. Single episode of transient laryngeal penetration, without evidence of aspiration with thin barium. 2. No additional episodes of laryngeal penetrations were seen with multiple swallows with thin barium. 3. No evidence of penetration or aspiration with applesauce consistency barium or barium coated cracker. 4. Please see separate speech pathology report for full discussion of findings and recommendations. D/ / Edd Hoffman MD / Edd Hoffman MD Interpreting Provider: Edd Hoffman MD Consult Discharge Plan - Plan Instructions: Angioedema (GEN) Additional Instructions: he is to have ESR, CRP and CBC repeated in 3 days. if he develops fever, chills, or signs of infection to come to ED [facility] Need Thyroid US as Outpatient. if any signs of fever, chills, or infectious process to come to the ED [facility] Referrals: Reilly Griggs MD [Partnered Physician] - 05/20/19 8:45 am [facility] [Primary Care Provider[facility] - 05/20/19 9:00 am Prescriptions: hydrALAZINE [HydrALAZINE] 25 mg PO Q8HR #90 tablet Nicotine Patch [Nicoderm] 21 mg TD DAILY #30 patch.td24 - Attending Attestation I examined this patient and my medical decision-making was reviewed with the Resident Physician. I agree with the documented findings, disposition and treatment plan as described except to the extent set forth below. Psychiatry Exam - Constitutional Vitals: Temp Pulse Resp BP Pulse Ox 98.7 F 94 18 164/91 95 05/12/19 07:12 05/12/19 07:12 05/12/19 07:42 05/12/19 07:12 05/12/19 07:42
--- NOTE | 2019-05-12 13:20 | Electrocardiograph Report ---
[place] [id number] Test Date: 2019-05-07 Pat Name: Petey Carroll Department: [id number] Room: 2NE17 Gender: Reiki Practitioner: : 1950 Requested By: Bienvenido Serrato Order Number: [id number] Reading MD: Raffy Piedra Measurements Intervals [place] Rate: 108 P: 47 NC: 162 QRS: -70 QRSD: 156 T: 58 QT: 380 QTc: 510 Interpretive Statements Sinus tachycardia RBBB and LAFB LVH by voltage Poor R wave progression Electronically Signed On 05-12-2019 13:18:42 EDT by Raffy Piedra
--- NOTE | 2019-05-12 16:46 | Oncology Inp Consult Note ---
<Reilly Griggs - Last Filed: 05/12/19 21:03> Date of Encounter: 05/12/19 - Data of Consult Requesting Physician: Bulmaro Gilbert Primary Care Provider: [facility] Medications and Allergies Acetaminophen [Tylenol] 325 mg PO Q12H PRN 05/09/19 [History] Albuterol Sulfate [Proair Hfa] 2 puff IH Q6H PRN 05/09/19 [History] Amlodipine Besylate 10 mg PO DAILY 05/09/19 [History] Aspirin [Lo-Dose Aspirin EC] 81 mg PO DAILY 05/09/19 [History] Benztropine [Cogentin] 0.5 mg PO BID 05/09/19 [History] Bisacodyl [Women's Laxative] 10 mg PO DAILY PRN 05/09/19 [History] Budesonide/Formoterol 160/4.5 [Symbicort 160/4.5] 2 puff IH BIDR 05/09/19 [His tory] Cholecalciferol (D-3) [Vitamin D] 2,000 unit PO DAILY 05/09/19 [History] GlipiZIDE [Glucotrol] 5 mg PO BIDWM 05/09/19 [History] Guaifenesin [Diabetic Tussin Ex] 200 mg PO Q4H PRN 05/09/19 [History] Haloperidol [Haldol] 5 mg PO 1300 05/09/19 [History] Haloperidol [Haldol] 5 mg PO QAM 05/09/19 [History] Haloperidol [Haldol] 10 mg PO HS 05/09/19 [History] Insulin Glargine,Hum.rec.anlog [Lantus Solostar] 42 unit SQ QAM 05/09/19 [History] Wiggins Carbonate ER [Lithobid] 300 mg PO HS 05/09/19 [History] Omeprazole [PriLOSEC] 20 mg PO BIDAC 05/09/19 [History] Sennosides/Docusate Sodium [Senna-Docusate Sodium Tablet] 1 tab PO BID 05/09/19 [History] Tamsulosin HCl [Flomax] 0.4 mg PO DAILY 05/09/19 [History] Urea [Ultra Mide 25] 1 applic TP DAILY 05/09/19 [History] lamoTRIgine [Subvenite] 100 mg PO HS 05/09/19 [History] raNITIdine HCl [Zantac] 150 mg PO BID 05/09/19 [History] Allergy/AdvReac Type Severity Reaction Status Date / Time Penicillins Allergy See Verified 05/14/15 20:14 Comments chocolate Allergy Unknown See Uncoded 05/08/19 01:51 Comments Consult Discharge Plan - Plan [facility]errals: [facility] [Primary Care Provider] - Inpatient Charges Provider: Dr. Adrianne Griggs Consult - Inpatient Medicare Only: [id number] - Attending Attestation I examined this patient and my medical decision-making was reviewed with the Advanced Practice Nurse. I agree with the documented findings, disposition and treatment plan as described except to the extent set forth below. Mr. Carroll presents with neutrophil predominant leukocytosis. Per record review, this has been an issue in the past. WBC was elevated at presentation and has decreased to 15,000 today. WBC with normal differential with exception of neutrophil. Neutrophils are mature. Exam is normal and without splenomegaly. CT A/P rev iewed personally. Picture c/w reactive neutrophilia. Etiologies include tobacco abuse and lithium. Inflammatory markers also elevated. No other workup indicated. May f/u with PCP. We will sign off. <Elier Estrella Jr - Last Filed: 05/13/19 08:14> Date of Encounter: 05/13/19 Time of Encounter: 16:00 Assessment and Plan (1) Leukocytosis Status: Acute Assessment and plan: Patient without a personal history of cancer. Baseline with psychiatric illness. Looking back at history to 2014, intermittent mildly elevated WBC and neutrophils. CT abdomen and chest show no worrisome acute process for malignancy. Elevation in his WBC may be from psychiatric medications, especially lithium, as it can increase the production of white blood cells in the bone marrow. No new recommendations for scans or blood testing. Peripheral smear shows no abnormal morphology. He can follow PCP or [facility] as [facility] to be monitored. Dr Griggs assessed patient with me today Qualifiers: Leukocytosis type: other Qualified Code(s): D72.828 - Other elevated white blood cell count - Data of Consult Patient: new to practice Consult date: 05/12/19 Requesting Physician: Bulmaro Gilbert Primary Care Provider: [facility] - Consult Narrative Reason for consult: leukocytosis History of present illness: Mr. Carroll is a 68-year-old male with a PMH of CHF, COPD, T2 DM, HTN, and hepatitis C who presented to [facility] ED as a transfer from the [place] for swollen feet and weakness. On arrival, vital signs demonstrated an elevated temperature at 100.8, elevated heart rate at 106, elevated blood pressure 160/76. All other vital signs were within normal limits. Labs showed an elevated white count at 26.2 with left shift, a low sodium of 134, creatinine 2.04 (appears to be baseline per chart review) Patient does have a known psychiatric history, and is currently on lithium / haloperidol. Patient with history mildly elevated WBC and neutrophilia. Past Med Surg Social Fam HX - Past Medical History Medical history: CHF, COPD, coronary artery disease, diabetes, GERD, liver disease, renal disease, other Additional medical history: heart murmur. schizophrenia Psychiatric history: schizophrenia - Past Surgical History Surgical History: pacemaker/AICD, other - Social History Smoking Status: Current every day smoker Packs per day: 2 Smokeless Tobacco Status: No Alcohol use: occasionally Drug use: none ROS unobtainable: due to mental status Oncology - Exam - Constitutional General appearance: disheveled, no acute distress - Head Head exam: Present: normal inspection, normocephalic - Eye Eye exam: Present: PERRL - ENT ENT exam: Present: mucous membranes moist - Neck Neck exam: Present: full ROM - Respiratory Respiratory exam: Present: CTAB - Cardiovascular Cardiovascular exam: Present: RRR - GI/Abdominal GI/Abdominal exam: Present: normal bowel sounds, soft - Extremities Exam Extremities exam: Present: full ROM, normal inspection - Neurological Exam Neurological exam: Present: alert, no focal deficits - Psychiatric Psychiatric exam: Present: flat affect - Skin Skin exam: Present: dry, intact Oncology Inpatient Results Labs: Laboratory Last Values WBC 15.0 K/mcL (4.3-11.1) H 05/12/19 05:00 RBC 4.28 M/mcL (4.19-5.50) 05/12/19 05:00 Hgb 11.4 g/dL (12.9-16.9) L 05/12/19 05:00 Hct 35.5 % (37.5-50.1) L 05/12/19 05:00 MCV 82.9 fL (83.0-100.0) L 05/12/19 05:00 MCH 26.6 pg (28.0-33.3) L 05/12/19 05:00 MCHC 32.1 g/dL (31.6-35.5) 05/12/19 05:00 RDW 16.3 % (11.5-14.5) H 05/12/19 05:00 Plt Count 238 K/mcL (140-400) 05/12/19 05:00 MPV 12.1 fL (9.4-12.4) 05/12/19 05:00 Immature Gran % 2.3 % (0-4) 05/11/19 03:46 Seg Neutrophils % 84.6 % 05/11/19 03:46 Lymphocytes % 8.8 % 05/11/19 03:46 Monocytes % 4.1 % 05/11/19 03:46 Eosinophils % 0.0 % 05/11/19 03:46 Basophils % 0.2 % 05/11/19 03:46 Neutrophils # 16.7 K/mcL (1.6-8.9) H 05/11/19 03:46 Lymphocytes # 1.7 K/mcL (0.6-4.6) 05/11/19 03:46 Monocytes # 0.8 K/mcL (0.0-1.3) 05/11/19 03:46 Eosinophils # 0.0 K/mcL (0.0-0.6) 05/11/19 03:46 Basophils # 0.0 K/mcL (0.0-0.2) 05/11/19 03:46 Nucleated RBCs/100 WBC 0.1 /100 WBC (0) H 05/11/19 03:46 Reactive Lymphocytes Present (Not Present) A 05/07/19 21:03 Immature Plt Fraction 5.8 % (1.1-6.1) 05/11/19 03:46 Smear Path Review See Below 05/11/19 03:46 ESR 99 mm/hr (0-10) H 05/12/19 05:00 PT 13.0 Seconds (9.4-12.1) H 05/07/19 21:03 INR 1.1 05/07/19 21:03 Sodium 137 mEq/L (136-145) 05/12/19 05:00 Potassium 4.7 mEq/L (3.5-5.1) 05/12/19 05:00 Chloride 105 mEq/L (98-107) 05/12/19 05:00 Carbon Dioxide 26 mEq/L (23-29) 05/12/19 05:00 BUN 42 mg/dL (8-23) H 05/12/19 05:00 Creatinine 2.01 mg/dL (0.70-1.30) H 05/12/19 05:00 Est GFR ( Amer) 40 (> 60) L 05/12/19 05:00 Est GFR (Non-Af Amer) 33 (> 60) L 05/12/19 05:00 BUN/Creatinine Ratio 21 (6-26) 05/12/19 05:00 Glucose 250 mg/dL (70-105) H 05/12/19 05:00 POC Glucose 111 mg/dL (70-99) H 05/11/19 16:16 Calculated Osmolality 303 (280-300) H 05/12/19 05:00 Lactic Acid 1.0 mmol/L (0.5-2.2) 05/07/19 21:03 Calcium 10.0 mg/dL (8.6-10.3) 05/12/19 05:00 Magnesium 2.1 mg/dL (1.6-2.6) 05/12/19 05:00 Total Bilirubin 0.4 mg/dL (0.3-1.0) 05/08/19 04:12 AST 18 Units/L (13-39) 05/08/19 04:12 ALT 13 Units/L (7-52) 05/08/19 04:12 Alkaline Phosphatase 116 Units/L (34-104) H 05/08/19 04:12 Ammonia 45 mcmol/L (16-53) 05/07/19 21:49 Troponin I 0.04 ng/mL (< 0.04) H* 05/08/19 08:17 C-Reactive Protein 20 mg/L (Less than 10) H 05/12/19 05:00 B-Natriuretic Peptide 112 pg/mL (Less than 100) H 05/08/19 04:12 Serum Total Protein 6.6 g/dL (6.4-8.9) 05/08/19 04:12 Albumin 2.9 g/dL (3.5-5.7) L 05/08/19 04:12 Globulin 3.7 g/dL (2.4-3.5) H 05/08/19 04:12 Albumin/Globulin Ratio 0.8 (1.1-2.2) L 05/08/19 04:12 Procalcitonin 2.90 ng/mL (0.00-0.15) H 05/08/19 04:12 TSH 0.367 mcIU/mL (0.340-5.600) 05/08/19 04:12 Urine Color Yellow (Yellow) 05/07/19 21:12 Urine Clarity Clear (Clear) 05/07/19 21:12 Urine pH 6.0 pH Units (5.0-8.0) 05/07/19 21:12 Ur Specific [place] 1.017 (1.010-1.025) 05/07/19 21:12 Urine Protein >=300 mg/dL (Neg-Trace) H 05/07/19 21:12 Urine Glucose (UA) Normal mg/dL (Normal) 05/07/19 21:12 Urine Ketones Negative mg/dL (Negative) 05/07/19 21:12 Urine Blood Moderate (Negative) H 05/07/19 21:12 Urine Nitrite Negative (Negative) 05/07/19 21:12 Urine Bilirubin Negative (Negative) 05/07/19 21:12 Urine Urobilinogen Normal mg/dL (Normal) 05/07/19 21:12 Ur Leukocyte Esterase Negative (Negative) 05/07/19 21:12 Urine Microscopic RBC 15-30 per hpf (0-3) H 05/07/19 21:12 Urine Microscopic WBC 3-5 per hpf (0-3) H 05/07/19 21:12 Ur Squamous Epith Cells Many per lpf (None-Few) H 05/07/19 21:12 Urine Bacteria None Seen per hpf (None-Few) 05/07/19 21:12 Hyaline Casts None Seen per lpf (None-Few) 05/07/19 21:12 Wiggins 0.5 mEq/L (0.6-1.2) L 05/07/19 21:03
--- NOTE | 2019-05-12 17:27 | Internal Med Progress Note ---
Hospitalist Progress Note - Encounter Date of Encounter: 05/12/19 Time of Encounter: 08:00 - Subjective Interval History: patient wass een ad examiend at bedside. has no complaints. feeling well. has no pain denies tongue swelling or difficulty breathing has had no chest pain or palpitations. tolerating PO diet. no events as per nursing staff - Exam Vitals: Temp Pulse Resp BP Pulse Ox 98.8 F 83 18 165/90 99 05/12/19 11:27 05/12/19 15:58 05/12/19 15:58 05/12/19 15:58 05/12/19 15:58 Exam: General: NAD, answers to questions appropriatly HEENT: uvula visible, no tongue swelling. Lymphatics: No mandibular or cervical lymphadenopathy Cardiovascular: RRR. No murmurs. No chest wall tenderness. Lungs: Clear to auscelltation bilaterally. Regular chest rise. Abdomen: Non-tender. No rebound or gaurding. Nl bowel sounds. Extremities: No edema. 2+ pulses radial and pedal pulses Skin: No rahses, abrasions, or contusions. Nl cap refill. Neuro:alert adn oriented, follows commands - Assessment and Plan (1) SIRS (systemic inflammatory response syndrome) Current Visit: Yes Status: Acute Assessment and Plan: Patient with history of morbid obesity and multiple psychiatric illnesses presents with weakness and complaints of swollen feet but no other complaints in the setting meeting 3/4 SIRS criteria, somnolence on physical exam, WBC of 26.2, ESR >130, neg UA, and neg CT c/a/p for any signs of acute infection. -Source still unclear. -Blood cultures no growth to date -Leukocytosis slightly decreased. Patient has been afebrile- it also appears to be chronic and it has exacerbated as he was on steroids for angioedema -May have been a stress response from angioedema -[place] can cause leukocytes -has elevated ESR adn CRP - however again no signs of infection. -peripheral smear performed and oncology consulted PLAN: - Peripheral smear path - un remarkable leukocyte mophology, neutrophila - ESR/CRP repeated and have trended down to 99 and 20 respectively - Monitor for fever - F/u blood cultures x4 NGTD -will follow hematology and oncology recs (2) Angioedema Current Visit: Yes Status: Acute Assessment and Plan: Tongue noted to be large. No swelling of lips. Not obstructing airway but is causing some dysphagia. On an ACEi. Status post 48 hours of IV steroids and Benadryl. Now completely resolved. - HOLD ACEi indefinitely (3) Suicidal ideation Current Visit: Yes Status: Acute Assessment and Plan: Apparently told ED staff that he wanted to jump off a bridge to kill himself. Psych on board " SI present but likely at baseline." - Continue home psych meds (4) Hypertension Current Visit: Yes Status: Acute Assessment and Plan: on amlodipine NO ACEI or ARB was started on hydralazine continue titrate as per BP (5) Thyromegaly Current Visit: Yes Status: Acute Assessment and Plan: Noted on CT. TSH nl. - Can undergo thyroid US as an o/p (6) CKD (chronic kidney disease) stage 2, GFR 60-89 ml/min Current Visit: Yes Status: Acute Assessment and Plan: At his baseline DVT Prophylaxis: heparin sc - Summary of Assessment and Plan Summary of Assessment and Plan: patient was admitted on 05/08 my first encounter was on 05/12 - Time Spent with Patient Total time spent is greater than 50% in coordination of care (as documented) at patient's floor/unit and/or counseling patient: Internal Medicine: Result - Labs CBC & Chem 7: 05/12/19 05:00 05/12/19 05:00 Labs: Short CBC 05/12/19 Range/Units 05:00 WBC 15.0 H (4.3-11.1) K/mcL Hgb 11.4 L (12.9-16.9) g/dL Hct 35.5 L (37.5-50.1) % Plt Count 238 (140-400) K/mcL BMP 05/12/19 05:00 Sodium 137 Potassium 4.7 Chloride 105 Carbon Dioxide 26 BUN 42 H Creatinine 2.01 H Glucose 250 H Calcium 10.0 - ABG Interpretation ABG results: PT/INR, D-dimer PT 13.0 Seconds (9.4-12.1) H 05/07/19 21:03 Consult Discharge Plan - Plan Referrals: [facility] [Primary Care Provider] - (2) Angioedema Qualifiers: Encounter type: initial encounter Qualified Code(s): T78.3XXA - Angioneurotic edema, initial encounter
[2019-05-12] MEDS: lamoTRIgine 100 MG TABLET PO SCH (20:14)
[2019-05-12] MEDS: Lithium Carbonate 300 MG CAPSULE PO SCH (23:27)
[2019-05-13] MEDS: Artificial Tears SOLN 15 ML BOTTLE BOTH EYES SCH ×6 (00:48→15:35)
[2019-05-13] MEDS: *HR* Heparin 5,000 UNIT/ML VIAL SQ SCH (05:50)
[2019-05-13 06:33] LABS: Hematocrit 35.6 % (37.5-50.1); Hemoglobin 11.3 g/dL (12.9-16.9); Mean Corpuscular HGB Conc 31.7 g/dL (31.6-35.5); Mean Corpuscular Hemoglobin 26.2 pg (28.0-33.3); Mean Corpuscular Volume 82.4 fL (83.0-100.0); Mean Platelet Volume 11.5 fL (9.4-12.4); Platelet Count 223 K/mcL (140-400); Red Blood Count 4.32 M/mcL (4.19-5.50); White Blood Count 15.4 K/mcL (4.3-11.1)
[2019-05-13 06:56] LABS: Calcium 9.7 mg/dL (8.6-10.3); Potassium 4.4 mEq/L (3.5-5.1)
[2019-05-13] MEDS: Budesonide/Formoterol 160/4.5 1 PUFF INH IH SCH (07:15)
[2019-05-13 07:42] VITALS: BP 144/70
--- NOTE | 2019-05-13 08:22 | Psychiatry Progress Note ---
Date of Encounter: 05/12/19 Time of Encounter: 10:00 Subjective Interval history: Patient is alert and oriented. Able to talk with me however I had a very hard time understanding the patient due to his angioedema. The patient states that he lives in a half-way and but doesnt live with anyone there. Staff has continued his medications and he is receiving them daily, with no change in regimen. Patient was suicidal on admission and is still having chronic passive thoughts that he wishes he weren't alive but has no intent or plan. He states that life is too hard and too complicated for him and he feels weary and doesnt want to live anymore. He has no plan or intent to harm himself. He is future oriented and hopes that things will improve. He still enjoys watching TV. Patient has had these thoughts for years but no history of attempts. Patient did say that he has been in and out of psychiatric hospital 6 or 7 times since his diagnosis in 1973, but is unable to give anymore history. He states that he has taken the same medications since his diagnosis of schizophrenia and bipolar, lithium and Haldol. Patient is chronic but stable with logical thought process and not responding to internal stimuli. Review of Systems Constitutional: Reports: weakness Eyes: Denies: eye pain Ears, Nose, Throat: Reports: throat pain Cardiovascular: Denies: chest pain Respiratory: Denies: cough Gastrointestinal: Denies: abdominal pain Genitourinary male: Denies: urgency Genitourinary female: Denies: urgency Musculoskeletal: Reports: myalgia Integumentary: Denies: rash Neurological: Reports: weakness Psychiatric: Reports: depression, anhedonia. Denies: auditory hallucinations, visual hallucinations Endocrine: Reports: fatigue Hematologic/Lymphatic: Denies: easy bleeding Allergic/Immunologic: Reports: facial swelling Results - Vital Signs Vital Signs: Temp Pulse Resp BP Pulse Ox 98.4 F 85 18 144/70 97 05/13/19 07:37 05/13/19 07:37 05/13/19 07:37 05/13/19 07:37 05/13/19 07:37 - Labs Labs: Laboratory Results - last 24 hr 05/11/19 05/12/19 05/12/19 21:58 07:17 11:31 WBC RBC Hgb Hct MCV MCH MCHC RDW Plt Count MPV Sodium Potassium Chloride Carbon Dioxide BUN Creatinine Est GFR ( Amer) Est GFR (Non-Af Amer) BUN/Creatinine Ratio Glucose POC Glucose 181 H 233 H 213 H Calculated Osmolality Calcium 05/12/19 05/12/19 05/13/19 16:03 22:33 05:42 WBC 15.4 H RBC 4.32 Hgb 11.3 L Hct 35.6 L MCV 82.4 L MCH 26.2 L MCHC 31.7 RDW 16.0 H Plt Count 223 MPV 11.5 Sodium Potassium Chloride Carbon Dioxide BUN Creatinine Est GFR ( Amer) Est GFR (Non-Af Amer) BUN/Creatinine Ratio Glucose POC Glucose 187 H 255 H Calculated Osmolality Calcium 05/13/19 05:42 WBC RBC Hgb Hct MCV MCH MCHC RDW Plt Count MPV Sodium 137 Potassium 4.4 Chloride 103 Carbon Dioxide 27 BUN 33 H Creatinine 1.68 H Est GFR ( Amer) 49 L Est GFR (Non-Af Amer) 41 L BUN/Creatinine Ratio 20 Glucose 234 H POC Glucose Calculated Osmolality 299 Calcium 9.7 - Impressions ITS Impressions Chest X-Ray 05/07/19 20:44 IMPRESSION: Cardiomegaly with clear lungs. D/ / Jesus Thurston MD / Jesus Thurston MD Interpreting Provider: Jesus Thurston MD Chest CT 05/07/19 22:39 IMPRESSION: No acute abnormality identified. Marked thyromegaly again seen. Thyroid ultrasound could be obtained for further evaluation if clinically warranted. D/ / Jesus Thurston MD / Jesus Thurston MD Interpreting Provider: Jesus Thurston MD Echocardiogram 05/08/19 08:09 Impressions: LVEF 50-55%. Normal LV chamber size and function. Mild concentric left ventricular hypertrophy. Atypical septal motion consistent with bundle branch block. Mild left ventricular diastolic dysfunction. Right ventricle was not well visualized. Grossly, it is normal in function. Unable to estimate RVSP due to lack of TR jet. Left Ventricular Wall Motion: Rest Echo Findings All wall segments showed normal motion. Findings: Study Quality * Technically sub-optimal due to poor echocardiographic windows. ECG Findings * Sinus rhythm with BBB. Left Ventricle * LVEF 50-55%. * Normal LV chamber size and function. * Mild concentric left ventricular hypertrophy. * Atypical septal motion consistent with bundle branch block. * Mild left ventricular diastolic dysfunction. Right Ventricle * Right ventricle was not well visualized. Grossly, it is normal in function. Left Atrium * Mildly dilated left atrium. Right Atrium * Normal right atrial size. Interatrial Septum * Interatrial septum not well evaluated. Aortic Valve * Aortic valve not well visualized. * No aortic regurgitation. * No aortic stenosis. Mitral Valve * Normal mitral valve structure and function. * No mitral regurgitation. * No mitral stenosis. Tricuspid Valve * Normal tricuspid valve structure and function. * No tricuspid regurgitation. * Unable to estimate RVSP due to lack of TR jet. Pulmonic Valve * Pulmonic valve not well visualized. Aorta * Normally sized aortic root. Pericardium * The pericardium appears normal. IVC * Grossly normal IVC dimensions and inspiratory collapse. Pulmonary Artery * Normal visualized portions of the main pulmonary artery. Abdomen/Pelvis CT 05/08/19 22:39 IMPRESSION: 1. Cholelithiasis without scan evidence for acute cholecystitis. 2. Small ventral hernias again seen containing small bowel without small bowel obstruction. 3. Large amount of stool again seen in the colon. D/ / Jesus Thurston MD / Jesus Thurston MD Interpreting Provider: Jesus Thurston MD Videofluoroscopic Swallow 05/10/19 09:13 IMPRESSION: 1. Single episode of transient laryngeal penetration, without evidence of aspiration with thin barium. 2. No additional episodes of laryngeal penetrations were seen with multiple swallows with thin barium. 3. No evidence of penetration or aspiration with applesauce consistency barium or barium coated cracker. 4. Please see separate speech pathology report for full discussion of findings and recommendations. D/ / Edd Hoffman MD / Edd Hoffman MD Interpreting Provider: Edd Hoffman MD Assessment and Plan (1) Chronic schizoaffective disorder Current visit: No Status: Acute Additional Plan: Patient admits to chronic thoughts that he wishes he were not alive. He has no intent of plan to harm himself. He is future oriented. He has no access to weapons and no hx of suicide attempts. These thoughts are chronic and represent his baseline. Patient is no immediate threat to himself or anyone else. Patient currently takes lithium for his mood and may need a dosage increase as his most recent lithium level is subtherapuetic (0.5) . Medication adjustment not advised until his medical issues are cleared, particularly as he is close to therapeutic and lithium has a narrow window and is dangerous if elevated. He does not meet criteria for involuntary psychiatric hospitalization. Consult Discharge Plan - Plan [facility]errals: [facility]Primary Care Provider[facility] - Psychiatry Exam - Constitutional Vitals: Temp Pulse Resp BP Pulse Ox 98.4 F 85 18 144/70 97 05/13/19 07:37 05/13/19 07:37 05/13/19 07:37 05/13/19 07:37 05/13/19 07:37 General appearance: disheveled - Musculoskeletal Gait: other (in bed) Station: slouched Strength & Tone: mild weakness - Psychiatric Patient Orientation: Yes Person, Yes Time, Yes Place, Yes Circumstance Level of alertness: Alert Behavior: calm Psychomotor activity: Slowed Eye Contact: Maintains Eye Contact Mood Description: Depressed Patient description of mood: down Affect description: blunted Speech Volume: Whispering (difficult to understand) Speech pattern: slurred, garbled Language & Vocabulary: consistent with education Thought Process: Linear, Goal Oriented Thought Content: Yes Suicidal ideation (pasive wish he was . No plan or intent to harm himself), No Homicidal ideation, No Overt delusions Perceptual Disturbances: No Auditory hallucinations, No Visual hallucinations Attention Span Ability: Capable of Focused Attention Memory Description: Grossly Intact Patient Reliability: Reliable Historian Fund of knowledge: Yes abstraction ability, Yes aware of current events Intelligence Estimate: Average Judgment: Good Insight: Full
[2019-05-13] MEDS: Aspirin 81 MG TAB.CHEW PO SCH (08:45)
[2019-05-13] MEDS: Famotidine 20 MG TABLET PO SCH (08:46)
[2019-05-13] MEDS: Sennosides 8.6 MG TABLET PO SCH (08:46)
[2019-05-13] MEDS: amLODIPine 5 MG TABLET PO SCH (08:46)
[2019-05-13] MEDS: hydrALAZINE 25 MG TABLET PO SCH ×2 (08:46→15:31)
[2019-05-13] MEDS: Cholecalciferol (D-3) 1,000 UNIT (25MCG) TABLET PO SCH (08:49)
[2019-05-13] MEDS: Nicotine 21 MG PATCH.TD24 TD SCH (08:49)
[2019-05-13] MEDS: Insulin LISPRO 300 UNITS/3 ML VIAL SQ SCH ×2 (08:56→11:52)
--- NOTE | 2019-05-13 08:58 | Discharge Summary ---
- NOTES TO OUTPATIENT PROVIDER Notes to Outpatient Provider: follow up with PCP as Op . CBC to be repeated in 3 days. thyroid US as OP Orders not resulted at time of discharge: Pending orders 05/09/19 15:12 Culture,Blood [BC] Routine Date of Encounter: 05/13/19 Time of Encounter: 08:44 - Discharge Diagnosis (1) Angioedema Priority: Primary Status: Acute (2) SIRS (systemic inflammatory response syndrome) Priority: Secondary Status: Acute (3) Suicidal ideation Priority: Secondary Status: Acute (4) Hypertension Priority: Secondary Status: Acute Qualifiers: Hypertension type: essential hypertension Qualified Code(s): I10 - Essential (primary) hypertension (5) Thyromegaly Priority: Secondary Status: Acute (6) CKD (chronic kidney disease) stage 2, GFR 60-89 ml/min Priority: Secondary Status: Acute Hospital course: "Mr. Carroll is a 68-year-old male with a PMH of CHF, COPD, T2 DM, HTN, and hepatitis C who presented to [facility] ED as a transfer from the [facility] for swollen feet and weakness. He was transferred here for further workup for his weakness. Only complaint is that his feet are swollen. Does not complain of any weakness. He has slurred speech which is baseline. On arrival, vital signs demonstrated an elevated temperature at 100.8, elevated heart rate at 106, elevated blood pressure 160/76. All other vital signs were w ithin normal limits. Labs showed an elevated white count at 26.2 with left shift, a low sodium of 134, creatinine 2.04 (appears to be baseline per chart review), elevated troponin 0.04, and elevated alkaline phosphatase at 129. CXR showed cardiomegaly. 2 sets of blood cultures were ordered. A one-time dose of Rocephin was ordered, and he was given 1 bolus of normal saline. A CT scan of the chest, abdomen, and pelvis were ordered. EKG demonstrated sinus tachycardia at 108, LAD, RBBB; no changes compared to prior EKG. During interview, patient stated that he had some pain in his legs. He reports that this has been going on for the last 6 months. His lower extremities both appear swollen; nonpitting edema on exam. He has dark discolorations on the lower portion of his lower extremities. When the nurse was questioning the patient before his arrival to the floor, he had reportedly stated that he wanted to specific is physically by jumping off a bridge. A sitter was obtained and a psychiatric consult was placed. Patient does have a known psychiatric history, and is currently on lithium haloperidol. We will continue to monitor patient for signs of deterioration. Closely monitor patient's vital signs, and order pro-calcitonin, ESR, CRP, and TSH. No infection source is suspected at this time. Blood cultures are ordered and currently pending. He has no meningeal signs, no cough, clear lung sounds, no abdominal pain, and no dysuria." patient presented with above presentation and had above ED course. patient was admitted on 05/07 and my first encounter with the patient was on 05/12. as per documentation his Tongue noted to be large. No swelling of lips. Not obstructing airway but is causing some dysphagia. On an ACEi. Status post 48 hours of IV steroids and Benadryl. Now completely resolved. No ACEi or ARBS indefinitely he was found to have elevated ESR and CRP on admission along with leukocytosis. he recieved IV steroids for angioedema which has likely contributated to the elvated level in addition to stress induced by angioedema. Chalybeate can also cause leukocytosis as per hematology. CT c/a/p for any signs of acute infection blood cultures x4 NGTD. UA negative. echocardiogram without evidence of vegetations. has remained afebrile since 05/08. ESR >130 /CRP 179 on admission which were repeated and have trended down to 99 and 20 respectively. for PCP [employer] follow levels in 3 days Peripheral smear path - unremarkable leukocyte mophology, neutrophila hematology and oncology recommended no further work up and to have his WBC r epeated as OP. Apparently told ED staff that he wanted to jump off a bridge to kill himself. Psych was consulted and on board " SI present but likely at baseline." and it was recommended to Continue home psych meds his blood pressure remained elevated and he was started on hydralazine with control of his BP. NO ACEI or ARB Thyroid ultrasound to be performed as outpatient.TSH wnl. he is to have CBC repeated in 3 days with his PCP to check for leukocytosis if any signs of fever, chills, or infectious process to come to the ED [facility]. TTE: Impressions: LVEF 50-55%. Normal LV chamber size and function. Mild concentric left ventricular hypertrophy. Atypical septal motion consistent with bundle branch block. Mild left ventricular diastolic dysfunction. Right ventricle was not well visualized. Grossly, it is normal in function. Unable to estimate RVSP due to lack of TR jet. CT A/P IMPRESSION: 1. Cholelithiasis without scan evidence for acute cholecystitis. 2. Small ventral hernias again seen containing small bowel without small bowel obstruction. 3. Large amount of stool again seen in the colon. Ct chest IMPRESSION: No acute abnormality identified. Marked thyromegaly again seen. Thyroid ultrasound could be obtained for further evaluation if clinically warranted. Discharge discussed with: patient, nurse, social work, case management, senior environmental consultant - Time Spent with Patient Total time spent providing and/or coordinating discharge services: Time spent: Greater than 30 minutes (35) - Discharge Medications Prescriptions: New hydrALAZINE [HydrALAZINE] 25 mg PO Q8HR #90 tablet Nicotine Patch [Nicoderm] 21 mg TD DAILY #30 patch.td24 Continued Tamsulosin HCl [Flomax] 0.4 mg PO DAILY raNITIdine HCl [Zantac] 150 mg PO BID Omeprazole [PriLOSEC] 20 mg PO BIDAC Chalybeate Carbonate ER [Lithobid] 300 mg PO HS lamoTRIgine [Subvenite] 100 mg PO HS Insulin Glargine,Hum.rec.anlog [Lantus Solostar] 42 unit SQ QAM Haloperidol [Haldol] 5 mg PO 1300 Haloperidol [Haldol] 5 mg PO QAM Haloperidol [Haldol] 10 mg PO HS GlipiZIDE [Glucotrol] 5 mg PO BIDWM Sennosides/Docusate Sodium [Senna-Docusate Sodium Tablet] 1 tab PO BID Guaifenesin [Diabetic Tussin Ex] 200 mg PO Q4H PRN PRN Reason: Cough Cholecalciferol (D-3) [Vitamin D] 2,000 unit PO DAILY Budesonide/Formoterol 160/4.5 [Symbicort 160/4.5] 2 puff IH BIDR Bisacodyl [Women's Laxative] 10 mg PO DAILY PRN PRN Reason: Constipation Benztropine [Cogentin] 0.5 mg PO BID Aspirin [Lo-Dose Aspirin EC] 81 mg PO DAILY Amlodipine Besylate 10 mg PO DAILY Acetaminophen [Tylenol] 325 mg PO Q12H PRN PRN Reason: Pain Albuterol Sulfate [Proair Hfa] 2 puff IH Q6H PRN PRN Reason: Shortness Of Breath Urea [Ultra Mide 25] 1 applic TP DAILY Home Medications: Acetaminophen [Tylenol] 325 mg PO Q12H PRN 05/09/19 [History] Albuterol Sulfate [Proair Hfa] 2 puff IH Q6H PRN 05/09/19 [History] Amlodipine Besylate 10 mg PO DAILY 05/09/19 [History] Aspirin [Lo-Dose Aspirin EC] 81 mg PO DAILY 05/09/19 [History] Benztropine [Cogentin] 0.5 mg PO BID 05/09/19 [History] Bisacodyl [Women's Laxative] 10 mg PO DAILY PRN 05/09/19 [History] Budesonide/Formoterol 160/4.5 [Symbicort 160/4.5] 2 puff IH BIDR 05/09/19 [History] Cholecalciferol (D-3) [Vitamin D] 2,000 unit PO DAILY 05/09/19 [History] GlipiZIDE [Glucotrol] 5 mg PO BIDWM 05/09/19 [History] Guaifenesin [Diabetic Tussin Ex] 200 mg PO Q4H PRN 05/09/19 [History] Haloperidol [Haldol] 5 mg PO 1300 05/09/19 [History] Haloperidol [Haldol] 5 mg PO QAM 05/09/19 [History] Haloperidol [Haldol] 10 mg PO HS 05/09/19 [History] Insulin Glargine,Hum.rec.anlog [Lantus Solostar] 42 unit SQ QAM 05/09/19 [History] Chalybeate Carbonate ER [Lithobid] 300 mg PO HS 05/09/19 [History] Omeprazole [PriLOSEC] 20 mg PO BIDAC 05/09/19 [History] Sennosides/Docusate Sodium [Senna-Docusate Sodium Tablet] 1 tab PO BID 05/09/19 [History] Tamsulosin HCl [Flomax] 0.4 mg PO DAILY 05/09/19 [History] Urea [Ultra Mide 25] 1 applic TP DAILY 05/09/19 [History] lamoTRIgine [Subvenite] 100 mg PO HS 05/09/19 [History] raNITIdine HCl [Zantac] 150 mg PO BID 05/09/19 [History] Nicotine Patch [Nicoderm] 21 mg TD DAILY #30 patch.td24 05/13/19 [Rx] hydrALAZINE [HydrALAZINE] 25 mg PO Q8HR #90 tablet 05/13/19 [Rx] Allergies/Adverse Reactions: Allergy/AdvReac Type Severity Reaction Status Date / Time RAMA Inhibitors Allergy Swelling Verified 05/13/19 09:08 of Lip/Tongue/Throat Penicillins Allergy See Verified 05/14/15 20:14 Comments chocolate Allergy Unknown See Uncoded 05/08/19 01:51 Comments Date of admission: 05/10/19 21:48 [facility] care physician: [facility] Consults: 05/08/19 01:23 Consult to Psychiatry [CONS] Routine Consulting Provider: Psychiatry [place] Reason consult: Andreas/1:1 05/08/19 01:25 Consult to Portfolio Consultant [CONS] Routine Reason for SW Consult: sitter 05/10/19 10:04 Consult to Infectious Diseases [CONS] Routine Consulting Provider: Infectious Disease [place] Reason for Consult: Fever and leukocytosis of unknwon etiology Call Completed: Yes 05/12/19 07:21 Consult to Oncology Hematology [CONS] Routine Consulting Provider: Elier Estrella Jr Reason for Consult: persistant leukocytosis - no source of infection Call Completed: No - Constitutional Vitals: Temp Pulse Resp BP Pulse Ox 98.4 F 85 18 144/70 97 05/13/19 07:37 05/13/19 07:37 05/13/19 07:37 05/13/19 07:37 05/13/19 07:37 Exam: General: NAD, answers to questions appropriatly HEENT: uvula visible, no tongue swelling. Lymphatics: No mandibular or cervical lymphadenopathy Cardiovascular: RRR. No murmurs. No chest wall tenderness. Lungs: Clear to auscultation bilaterally. Regular chest rise. Abdomen: Non-tender. No rebound or gaurding. Nl bowel sounds. Extremities: No edema. 2+ pulses radial and pedal pulses Skin: No rahses, abrasions, or contusions. Nl cap refill. Neuro:alert adn oriented, follows commands - Patient Status Disposition: Transfer Other Condition: Fair Functional capacity at discharge: independent ambulation Overall status at discharge: patient is progressing back to baseline - Discharge Instructions Instructions: Angioedema (GEN) Follow Up With: Reilly Griggs MD [Partnered Physician] - 05/20/19 8:45 am [facility] [Primary Care Provider[facility] - 05/20/19 9:00 am Forms: ED Satisfaction Letter Additional Instructions: he is to have ESR, CRP and CBC repeated in 3 days. if he develops fever, chills, or signs of infection to come to ED [facility] Need Thyroid US as Outpatient. if any signs of fever, chills, or infectious process to come to the ED [facility] - Diet and Activity Activity: increase activity as tolerated Diet: diabetic diet (renal )
== END 2019-05-13 17:38 | disposition other institution (70) | DRG 916 ==
LOC: 2NENU 20:33 → EMEROOARM 20:33 → SUATTDRO 23:04 → 2NENU 23:23
PROVIDERS: ADMIT Internal Medicine; ATTEND Internal Medicine

== ENCOUNTER 2019-11-20 09:54 | Inpatient (IN) ==
[2019-11-20] MEDS ORDERED: 0.9 % Sodium Chloride 1,000 ML ONE ×2 (10:02→10:35)
[2019-11-20] MEDS: 0.9 % Sodium Chloride 1,000 ML IVC SCH ×3 (10:24→16:42)
[2019-11-20 10:31] LABS: ABG Base Excess -6 mEq/L (-2 to 3); ABG HCO3 23 mEq/L (21-27); ABG Oxygen Saturation 100 % (95-98); ABG PCO2 60 mmHg (35-45); ABG PH 7.18 pH Units (7.32-7.45); ABG PO2 223 mmHg (85-104); ABG TCO2 24 mEq/L (20-26); Blood Gas Modality ASSIST CONTROL; Blood Gas VT 500 cc
[2019-11-20] MEDS ORDERED: *HR* Atropine Sulfate 1 MG/10 ML SYRINGE IVP STA (10:33)
[2019-11-20 10:35] LABS: Bilirubin,Urine Small (Negative); Blood,Urine Negative (Negative); Clarity,Urine Cloudy (Clear); Color,Urine Dark Yellow (Yellow); Glucose,Urine (UA) 100 mg/dL (Normal); Ketones,Urine Negative (Negative); Leukocyte Esterase,Urine Trace (Negative); Nitrite,Urine Negative (Negative); Protein,Urine >=300 mg/dL (Neg-Trace); Specific Gravity,Urine 1.019 (1.010-1.025); Urobilinogen,Urine Normal (Normal)
[2019-11-20 10:37] LABS: Bacteria,Urine None Seen per hpf (None-Few); Hyaline Casts,Urine Few per lpf (None-Few); Squamous Epithelial Cell,Urine Many per lpf (None-Few)
[2019-11-20 10:43] LABS: Amphetamine Screen,Urine Negative ng/mL (Cutoff=1000); Barbiturate Screen,Urine Negative ng/mL (Cutoff=200); Benzodiazepines Screen,Urine Negative ng/mL (Cutoff=200); Cannabinoid Screen,Urine Negative ng/mL (Cutoff = 50); Cocaine Screen,Urine Negative ng/mL (Cutoff= 300); Opiate Screen,Urine Negative ng/mL (Cutoff=300); Phencyclidine Screen,Urine Negative ng/mL (Cutoff=25)
[2019-11-20] MEDS ORDERED: Calcium Chloride 1,000 MG in 0.9 % Sodium Chloride 100 ML IVPB ONE (10:44)
[2019-11-20] MEDS ORDERED: Sodium Bicarbonate 50 MEQ/50 ML VIAL IVP ONE (10:44)
[2019-11-20] MEDS: Norepinephrine 4 MG in 0.9 % Sodium Chloride 250 ML IVC SCH (10:44)
[2019-11-20 10:52] LABS: Sperm,Urine Present (None Seen)
[2019-11-20 11:12] LABS: Basophils % 0.2 %; Eosinophils % 0.6 %; Hematocrit 25.6 % (37.5-50.1); Hemoglobin 7.6 g/dL (12.9-16.9); Immature Granulocytes % 1.1 % (0-4); Lymphocytes # 0.4 K/mcL (0.6-4.6); Lymphocytes % 6.7 %; Mean Corpuscular HGB Conc 29.7 g/dL (31.6-35.5); Mean Corpuscular Hemoglobin 26.6 pg (28.0-33.3); Mean Corpuscular Volume 89.5 fL (83.0-100.0); Mean Platelet Volume 11.1 fL (9.4-12.4); Monocytes % 0.8 %; Neutrophils # 4.8 K/mcL (1.6-8.9); Platelet Count 117 K/mcL (140-400); Red Blood Count 2.86 M/mcL (4.19-5.50); Red Cell Distribution Width 15.7 % (11.5-14.5); Segmented Neutrophils % 90.6 %; White Blood Count 5.3 K/mcL (4.3-11.1)
[2019-11-20 11:36] LABS: Acetaminophen < 10 mcg/mL (10-20); Alanine Aminotransferase 18 Units/L (7-52); Albumin 2.8 g/dL (3.5-5.7); Albumin/Globulin Ratio 1.2 (1.1-2.2); Alkaline Phosphatase 90 Units/L (34-104); Aspartate Amino Transferase 21 Units/L (13-39); BUN/Creatinine Ratio 14 (6-26); Bilirubin,Direct 0.1 mg/dL (0.0-0.2); Bilirubin,Indirect 0.2 mg/dL (0.0-1.0); Bilirubin,Total 0.3 mg/dL (0.3-1.0); Blood Urea Nitrogen 32 mg/dL (8-23); Calcium 9.2 mg/dL (8.6-10.3); Carbon Dioxide 21 mEq/L (23-29); Chloride 105 mEq/L (98-107); Globulin 2.4 g/dL (2.4-3.5); Glucose 252 mg/dL (70-105); Osmolality,Calculated 301 (280-300); Potassium 5.6 mEq/L (3.5-5.1); Salicylate < 2.5 mg/dL (15.0-30.0); Sodium 138 mEq/L (136-145); Total Protein 5.2 g/dL (6.4-8.9); Troponin I < 0.03 ng/mL (< 0.04); eGFR For African Americans 34 (> 60); eGFR For Non-African Americans 28 (> 60)
[2019-11-20 11:48] LABS: Ethanol < 10 mg/dL (Less than 10)
[2019-11-20 12:01] LABS: ABG Base Excess -1 mEq/L (-2 to 3); ABG HCO3 26 mEq/L (21-27); ABG Oxygen Saturation 75 % (95-98); ABG PCO2 55 mmHg (35-45); ABG PH 7.29 pH Units (7.32-7.45); ABG PO2 46 mmHg (85-104); ABG TCO2 28 mEq/L (20-26); Blood Gas Modality ASSIST CONTROL; Blood Gas VT 500 cc
[2019-11-20] MEDS ORDERED: Artificial Tears SOLN 15 ML BOTTLE BOTH EYES PRN (15:00)
[2019-11-20] MEDS ORDERED: Naloxone 0.4 MG/ML INJ IVP PRN (15:00)
[2019-11-20] MEDS ORDERED: Albuterol 2.5 MG/3 ML NEBULIZER IH PRN (15:00)
[2019-11-20] MEDS ORDERED: Acetaminophen 325 MG TABLET PO PRN (15:00)
[2019-11-20] MEDS ORDERED: D5% in Water 1,000 ML IVC PRN (15:10)
[2019-11-20] MEDS ORDERED: Dextrose Gel 15 GM/37.5 ML TUBE PO PRN ×2 (15:10)
[2019-11-20] MEDS ORDERED: *HR* Dextrose 50 % in Water (Syg) 50 ML SYRINGE IVP PRN (15:10)
[2019-11-20] MEDS ORDERED: Ipratropium/Albuterol Neb 3 ML ONE (15:30)
[2019-11-20 16:08] LABS: ABG Base Excess 2 mEq/L (-2 to 3); ABG HCO3 26 mEq/L (21-27); ABG Oxygen Saturation 100 % (95-98); ABG PCO2 38 mmHg (35-45); ABG PH 7.44 pH Units (7.32-7.45); ABG PO2 231 mmHg (85-104); ABG TCO2 27 mEq/L (20-26); Blood Gas Modality AF; Blood Gas VT 500 cc
[2019-11-20 16:22] LABS: VBG Ionized Calcium 1.14 mmol/L (1.15-1.35)
[2019-11-20 16:40] LABS: Albumin 3.6 g/dL (3.5-5.7); Albumin/Globulin Ratio 1.1 (1.1-2.2); Bilirubin,Total 0.4 mg/dL (0.3-1.0); Calcium 9.3 mg/dL (8.6-10.3); Globulin 3.4 g/dL (2.4-3.5); Magnesium 3.4 mg/dL (1.6-2.6); Phosphorous 5.2 mg/dL (2.7-4.5); Potassium 5.1 mEq/L (3.5-5.1); Troponin I 0.08 ng/mL (< 0.04)
[2019-11-20] MEDS: Pantoprazole 40 MG VIAL IVP SCH (16:42)
[2019-11-20] MEDS: Piperacillin/Tazobactam 3.375 GM in 0.9 % Sodium Chloride Mini Bag 100 ML IVPB SCH ×2 (16:42→23:36)
[2019-11-20] MEDS: Artificial Tears SOLN 15 ML BOTTLE BOTH EYES SCH ×3 (16:42→23:37)
[2019-11-20] MEDS: *HR* Heparin 5,000 UNIT/ML VIAL SQ SCH ×2 (16:42→23:40)
[2019-11-20 17:00] LABS: Basophils % 0.2 %; Eosinophils % 0.3 %; Hemoglobin 9.9 g/dL (12.9-16.9); Immature Granulocytes % 0.5 % (0-4); Lymphocytes # 0.6 K/mcL (0.6-4.6); Lymphocytes % 5.7 %; Mean Corpuscular HGB Conc 30.9 g/dL (31.6-35.5); Mean Corpuscular Hemoglobin 26.4 pg (28.0-33.3); Mean Corpuscular Volume 85.3 fL (83.0-100.0); Mean Platelet Volume 10.6 fL (9.4-12.4); Monocytes # 0.7 K/mcL (0.0-1.3); Monocytes % 6.8 %; Neutrophils # 9.4 K/mcL (1.6-8.9); Platelet Count 177 K/mcL (140-400); Red Blood Count 3.75 M/mcL (4.19-5.50); Red Cell Distribution Width 15.5 % (11.5-14.5); Segmented Neutrophils % 86.5 %; White Blood Count 10.9 K/mcL (4.3-11.1)
[2019-11-20] MEDS: Ipratropium/Albuterol Neb 3 ML IH SCH ×2 (17:21→21:21)
[2019-11-20 18:09] LABS: Estimated Average Glucose 237 mg/dl
[2019-11-20] MEDS: Insulin LISPRO 300 UNITS/3 ML VIAL SQ SCH ×2 (18:41→23:42)
[2019-11-20] MEDS: Chlorhexidine Rinse 15 ML MOUTHWASH MM SCH (20:05)
[2019-11-21] MEDS: 0.9 % Sodium Chloride 1,000 ML IVC SCH ×2 (02:49→13:00)
[2019-11-21] MEDS: Artificial Tears SOLN 15 ML BOTTLE BOTH EYES SCH ×4 (03:16→15:46)
[2019-11-21 03:34] LABS: Basophils % 0.1 %; Hematocrit 31.5 % (37.5-50.1); Hemoglobin 9.8 g/dL (12.9-16.9); Immature Granulocytes % 0.4 % (0-4); Lymphocytes # 0.5 K/mcL (0.6-4.6); Lymphocytes % 3.4 %; Mean Corpuscular HGB Conc 31.1 g/dL (31.6-35.5); Mean Corpuscular Hemoglobin 27.1 pg (28.0-33.3); Mean Corpuscular Volume 87.3 fL (83.0-100.0); Mean Platelet Volume 10.9 fL (9.4-12.4); Monocytes # 0.7 K/mcL (0.0-1.3); Monocytes % 4.4 %; Neutrophils # 14.1 K/mcL (1.6-8.9); Nucleated Red Blood Cells 0.2 /100 WBC (0); Platelet Count 195 K/mcL (140-400); Red Blood Count 3.61 M/mcL (4.19-5.50); Segmented Neutrophils % 91.7 %; White Blood Count 15.4 K/mcL (4.3-11.1)
[2019-11-21] MEDS: FentaNYL (PF) 1,000 MCG in 0.9 % Sodium Chloride 80 ML IVC SCH ×2 (03:36→15:15)
[2019-11-21] MEDS: Ipratropium/Albuterol Neb 3 ML IH SCH ×3 (03:58→15:32)
[2019-11-21 03:59] LABS: Albumin 3.4 g/dL (3.5-5.7); Albumin/Globulin Ratio 1.1 (1.1-2.2); Bilirubin,Direct 0.1 mg/dL (0.0-0.2); Bilirubin,Indirect 0.3 mg/dL (0.0-1.0); Bilirubin,Total 0.4 mg/dL (0.3-1.0); Calcium 8.5 mg/dL (8.6-10.3); Globulin 3.1 g/dL (2.4-3.5); Magnesium 3.2 mg/dL (1.6-2.6); Phosphorous 4.6 mg/dL (2.7-4.5); Total Protein 6.5 g/dL (6.4-8.9)
[2019-11-21 04:37] LABS: ABG Base Excess -3 mEq/L (-2 to 3); ABG HCO3 25 mEq/L (21-27); ABG Oxygen Saturation 84 % (95-98); ABG PCO2 60 mmHg (35-45); ABG PH 7.23 pH Units (7.32-7.45); ABG PO2 59 mmHg (85-104); ABG TCO2 27 mEq/L (20-26); Blood Gas Modality ASSIST CONTROL; Blood Gas VT 500 cc
[2019-11-21] MEDS: Insulin LISPRO 300 UNITS/3 ML VIAL SQ SCH ×3 (05:56→18:52)
[2019-11-21] MEDS ORDERED: Perflutren Lipid Microsphere 1.3 ML in 0.9 % Sodium Chloride 8.7 ML IVP ONE (07:23)
[2019-11-21] MEDS: *HR* Heparin 5,000 UNIT/ML VIAL SQ SCH ×2 (07:41→15:50)
[2019-11-21] MEDS: Piperacillin/Tazobactam 3.375 GM in 0.9 % Sodium Chloride Mini Bag 100 ML IVPB SCH (07:41)
[2019-11-21] MEDS: Chlorhexidine Rinse 15 ML MOUTHWASH MM SCH (07:41)
[2019-11-21] MEDS: Pantoprazole 40 MG VIAL IVP SCH (07:41)
[2019-11-21] MEDS ORDERED: Vasopressin 40 UNIT in D5% in Water 100 ML IVC SCH (07:45)
[2019-11-21] MEDS: Norepinephrine 4 MG in 0.9 % Sodium Chloride 250 ML IVC SCH ×2 (09:41→14:05)
[2019-11-21] MEDS ORDERED: Norepinephrine 8 MG in 0.9 % Sodium Chloride 250 ML IVC SCH (16:00)
[2019-11-21 17:18] VITALS: BP 77/53
[2019-11-21] MEDS ORDERED: Morphine Sulfate 2 MG/ML SYRINGE IVP ONE (18:19)
[2019-11-21] MEDS ORDERED: *HR* EPINEPHrine 1 MG/10 ML SYRINGE IVP ONE (19:59)
[2019-11-21] MEDS ORDERED: Aminoglycoside Consult 1 EACH MC ONE (19:59)
[2019-11-21] MEDS ORDERED: EPINEPHrine 1 MG/ML VIAL IV ONE (19:59)
[2019-11-21] MEDS ORDERED: Piperacillin/Tazobactam 3.375 GM in 0.9 % Sodium Chloride Mini Bag 100 ML IVPB SCH (20:00)
== END 2019-11-21 20:00 | disposition expired | DRG 91 ==
LOC: EMEROOARM 09:54 → MERGE 14:30 → ICNU 14:30
PROVIDERS: ADMIT Pediatrics; ATTEND Pediatrics